=== PATIENT | female | born 1950 | race African-American/Black ===

== ENCOUNTER → 2017-08-28 10:13 | Outpatient (CLI) | payer MEDICARE, SELFPAY ==
--- NOTE | 2017-08-28 10:15 | EKG12_ITS ---
Test Reason : PRE-OP Blood Pressure : / mmHG Vent. Rate : 072 BPM Atrial Rate : 072 BPM P-R Int : 128 ms QRS Dur : 096 ms QT Int : 350 ms P-R-T Axes : 049 010 061 degrees QTc Int : 383 ms Normal sinus rhythm Nonspecific T wave abnormality Abnormal ECG Confirmed by ROSELIA ALFARO, ABRAM ([id number]), story editor MAGALIE RAHMAN ([id number]) on 08/29/2017 12:02:23 PM Referred By: Dwaine Mo Confirmed By:ABRAM VELOZ MD
== END ==
PROVIDERS: Family Provider Family Medicine Geriatric Medicine; PCP Family Medicine Geriatric Medicine; Visit Provider Family Medicine Geriatric Medicine
DX: Z01.810 Encounter for preprocedural cardiovascular examination (principal)
CPT/HCPCS: 93005

== ENCOUNTER 2017-09-04 09:19 | Inpatient (IN) | payer MEDICARE, SELFPAY ==
[2017-08-31 16:18] LABS: Hemoglobin A1c 8.6 % (4.2-6.3)
[2017-09-04] VITALS (14 sets, daily range): BP systolic 110–150; BP diastolic 56–94; PULSE 70–83; RESP 16–18; TEMP 35.8–37; O2SAT 92–100; BMI 46.4
--- NOTE | 2017-09-04 | KNEE_PTH ---
PATIENT: KONRAD LOCKWOOD LOC: MS3 U#:[id number] AGE/SX: 67/F ROOM: MS310 RE09/04/[address]: Alexi Mark DO : 1950 BED: 1 DIS: 09/06/2017 SPEC #: [id number] RECD: 09/04/17 14:40 STATUS: AARON REGianna #: [id number] JENNIFER: 09/04/17 00:[address]: Aleix Mark DEPT: SURGICAL PATHOLOGY RECD BY: Elmre Sow ENTERED: 09/04/17 14:40 SP TYPE: TOTAL KNEE OTHR DR: Dr. Dwaine Mo MD Tissues: Knee, NOS Procedures: Decalcification bone/plaque Surgery Specimen Level IV HEADER OPERATION: Total knee replacement PRE-OP DIAGNOSIS: Primary osteoarthritis and chronic pain of right knee TISSUE SUBMITTED: Bone and tissue from right knee MICROSCOPIC DIAGNOSIS Bone and tissue, right knee, total knee replacement: Pieces of bone with degenerative osteoarthritic changes. Fibroadipose tissue, fibroconnective tissue and reactive synovial tissue. SJ:rylan 09/07/17 MICROSCOPIC DESCRIPTION Slides are reviewed. GROSS DESCRIPTION Received is one container designated bone and soft tissue right knee. The specimen consists of multiple fragments of wilhelm-yellow bone measuring in aggregate 17 x 9 x 2 cm. Also in the specimen container are multiple fragments of yellow-white soft tissue measuring in aggregate 7 x 6.5 x 1.5 cm. A number of bony fragments contain articular surfaces consistent with tibial plateau and femoral condyle and displaying prominent osteophyte formation, eburnation, and bone erosion. Manager Resource sections are submitted in two cassettes as follows: 1 - bone after decalcification, 2 - soft tissue. / AM:rylan 09/04/17 TC:5 [facility]: [id number], [id number]
[2017-09-04] MEDS: oxyCODONE HCl Cr 10 MG Tablet PO ×2 (10:02→21:42)
[2017-09-04 10:21] LABS: Bedside Glucose 103 mg/dL (70-110)
[2017-09-04] MEDS: Cefazolin 2 GM in 0.9% Normal Saline 100 ML IV (11:50)
--- NOTE | 2017-09-04 13:17 | OP.PN_ITS ---
Immediate Post-Op Note Date of Procedure: 09/04/17 Primary Surgeon/Physician: Alexi Mark DO nonprofit director: Wolf Hoang Pre-Operative Diagnosis: Right knee osteoarthritis Post-Operative Diagnosis: Same as above Surgery/Procedure Performed:: Right total knee arthroplasty-[place] trimaren Description of Surgical Findings:: See dictation Estimated Blood Loss: 50 Specimen's removed: Bone cuts Type of Anesthesia:: General ASA Class: ASA2 Mod Systematic Disease - Admit VTE Documentation VTE Present on Admission: No VTE Mechan Device Prophylaxis: SCD's, Knee High JEREMY Hose VTE Pharm Prophylaxis ordered?: Yes
--- NOTE | 2017-09-04 13:17 | PCM.OPRPT ---
Report of Operation Date of Procedure: 09/04/17 Pre-Operative Diagnosis: Right knee osteoarthritis Post-Operative Diagnosis: Same as above Surgery/Procedure Performed:: Right total knee arthroplasty-[place] Description of Surgical Findings:: 67-year-old female with recalcitrant right knee pain that failed nonoperative management to include NSAIDs activity modifications physical therapy and injections. Plain from radiographs revealed osteoarthritis greatest across the medial compartment and the patellofemoral joint. Patient discussed possibility of having compartment arthroplasty versus total knee. Patient felt her age and she was more inclined to have a total knee arthroplasty at this point time. Patient was subsequently consented for the aforementioned procedure. She is met in the holding area where the right lower extremity was marked and identified by the with surgeon. Patient was taken to the operating room where a timeout took place 25 patient up procedure limb. Patient received preoperative Ancef and 1 g of TXA. She had a well-placed tourniquet right proximal thigh. She was then prepped and draped in usual fashion. Right lower extremity was elevated Esmarch used for exsanguination and tourniquet was increased to 250 mmHg for roughly 60 minutes. Patient had a standard midline incision made 2 fingerbreadths above the patella down to the tibial tubercle. She then underwent a standard medial parapatellar approach. Patient had a large return of an effusion. Grossly was seen the patient had osteoarthritis of patellofemoral joint and the medial compartment. Lateral compartment is relatively preserved. At that point time an anterior fat pad resection was undertaken. We then performed a standard anterior medial release secondary to the varus nature of the patient's knee. She was correctable to neutral deformity preoperatively. At that point time we placed our intramedullary canal using standard technique in order perform our distal femoral cut. We performed an 8 mm distal femoral section with a 6? valgus cut. This was done using standard technique. Sizing guide was then placed to establish also external rotation of our component. We used a trans-epicondylar axis. Patient sized to a size 3 femoral component. Size 3 cutting jig was then placed in standard cuts were performed. Then turned our attention to the tibia. We anticipated performing a CR component. Tibial slope was set accordingly. At that point time we took 2 mm off the medial side of the knee. This was done using standard technique. At that point time the soft tissue remnants of menisci removed in the posterior lateral and posterior medial geniculate vessels were cauterized. The PCL was protected. We then placed a 9 mm spacer. We had good mechanical alignment in the AP plane and no flexion or extension gap through 30 and 90? of knee flexion. At that point time trial components were placed external rotation the components was achieved and the tibia was then fixed. Keel punch introduced and we placed secondary punch in anticipation of a press-fit tibial component. Then turned our attention to the patella. It measured roughly 22 mm in overall thickness we took off 10. Patient sized with 35 patella button. Appropriate drill holes were placed in anticipation of a cemented patella component. We then copiously irrigated the joint to remove any excess debris. Components were brought to the back table tibial component seated initially femoral component then impacted without difficulty and 11 mm spacer was placed. We then turned our attention to the patella it was cemented accordingly and the cement was allowed to cure. I elected to move up to a 13 trial as I felt a little bit overall soft tissue balancing on the medial side with that component. Patient remained stable and I elected to proceed again with a 13 mm CS Erendira. We copiously irrigated the wound one additional time. The 13 mm CS Erendira was then impacted using standard technique. We had excellent overall mechanical alignment in extension. At that point time patient was injected with roughly 75 cc of the periarticular joint cocktail for pain control. We then began our closure using standard technique. The distal two thirds the wound was closed with ohinif-di-xccyg technique using #1 Vicryl with the knee in 30? of knee flexion.. The proximal one third was closed in full extension. It was let down during final closure. We then proceeded to close the soft tissues with 2-0 Vicryl running subicular Monocryl and Dermabond. Patient was then dressed with a compressive wrap to include Silverlon. No drains or complications. Implants included [place]au triathlon press-fit total knee-#3 femur, #3 tibia, 13 mm CS Erendira, 35 patella button. Omitted to the floor for 24 hours of IV antibiotics appropriate IV and p.o. pain medication. DVT prophylaxis to include SCDs teds early aggressive range of motion in 325 p.o. twice daily with GI prophylaxis of aspirin. Any major issues please contact me if I was scrubbed and available time during our procedure. bottling equipment sales representative: Wolf Hoang Type of Anesthesia:: General Specimen's removed: Bone cuts Estimated Blood Loss (mL): 50 Grafts/Implants Used: Striker triathlon press-fit-3 femur, 3 tibia, 13 mm CS Erendira, 35 patella - Complications None - Admit VTE Documentation VTE Present on Admission: No VTE Mechan Device Prophylaxis: SCD's, Knee High JEREMY Hose VTE Pharm Prophylaxis ordered?: Yes
--- NOTE | 2017-09-04 14:00 | RAD_ITS ---
STUDY: X-RAY - RIGHT KNEE REASON FOR EXAM: Female, 67 years old. Total knee replacement. TECHNIQUE: 2 view(s) of the knee. COMPARISON: Comparison is made with prior study dated December 18, 2016. FINDINGS: Normal visualized distal femur. Normal visualized proximal tibia and fibula. Normal proximal tibiofibular articulation. The patient is status post right total knee replacement. There is good alignment. Postoperative soft tissue changes. RAD/Knee 1 or 2 Views IMPRESSION: Total knee replacement. There is good alignment. Postoperative soft tissue changes. Electronically Signed: Deon Nair MD at 15:49 EST Tel [phone], Service support ,
[2017-09-04 14:26] LABS: Bedside Glucose 137 mg/dL (70-110)
--- NOTE | 2017-09-04 16:21 | CASEMGMT ---
Social Work Note Updated by Dr. Mark that the pt was requesting to go to TCU at discharge. Placed call to [facility] and left vm inquiring about bed availability. Will f/u in the morning to confirm determination. Plan: SNF pending acceptance and pre-cert. Suzy Berkowitz, HEAD REFRIGERATION ENGINEER, AUTO BODY REPAIRMAN
[2017-09-04] MEDS: Gabapentin 600 MG Tablet PO (16:52)
[2017-09-04] MEDS: Acetaminophen 500 MG Tablet 1000 MG PO ×2 (16:52→21:42)
[2017-09-04 16:56] LABS: Bedside Glucose 139 mg/dL (70-110)
[2017-09-04] MEDS: CLARIFY ORDER NOTE (20:21)
[2017-09-04] MEDS: Ondansetron 4 MG/2 ML Vial IV (20:37)
[2017-09-04] MEDS: Cefazolin 1 GM/50 ML BAG IV (20:38)
[2017-09-04] MEDS: Senna/Docusate Sodium 1 Tablet 2 TABLET PO (21:41)
[2017-09-04] MEDS: Atorvastatin Calcium 20 MG Tablet PO (21:42)
[2017-09-04] MEDS: Pantoprazole Sodium 40 MG Tablet PO (21:42)
[2017-09-05] VITALS (8 sets, daily range): BP systolic 118–135; BP diastolic 54–80; PULSE 69–78; RESP 16–18; TEMP 36.5–36.8; O2SAT 86–99
[2017-09-05] MEDS: Lactated Ringers 1,000 ML 75 ML IV (01:30)
[2017-09-05] MEDS: Cefazolin 1 GM/50 ML BAG IV (03:09)
[2017-09-05 05:48] LABS: Hematocrit 38.8 % (37-47); Hemoglobin 11.9 g/dl (12.0-15.0); Mean Corp Hgb Conc 30.7 g/gl (32-36); Mean Corpuscular Hgb 25.1 pg (27.0-32.0); Mean Corpuscular Volume 81.9 fL (81-99); Mean Platelet Vol. 10.1 fl (6.2-12.0); Platelet Count 279 K/mm3 (150-450); RBC Distribution Width CV 15.3 % (11.6-14.6); RBC Distribution Width SD 45.9 fl (35.1-43.9); Red Blood Count 4.74 M/mm3 (4.2-5.4)
[2017-09-05] MEDS: Acetaminophen 500 MG Tablet 1000 MG PO ×3 (05:56→22:19)
[2017-09-05 06:05] LABS: Anion Gap 6 (5-15); BUN 7 mg/dL (7-18); BUN/Creat Ratio 6.6 RATIO (10-20); Calcium,Total 8.4 mg/dL (8.5-10.1); Chloride 109 mmol/L (98-107); Creatinine, Serum 1.06 mg/dL (0.55-1.02); EST Glomerular Filtration Rate 55 mL/min (>60); Est Glom Filt Rate - Afr Amer 66 mL/min (>60); Estimated Creatinine Clearance 43.25 ml/min; Glucose 122 mg/dL (74-106); Potassium 4.4 mmol/L (3.5-5.1); Sodium Level 143 mmol/L (136-145)
[2017-09-05 06:16] LABS: Scan Indicated on CBC? Y/N NO
[2017-09-05 06:31] LABS: Bedside Glucose 130 mg/dL (70-110)
--- NOTE | 2017-09-05 07:53 | PN.ORTHO_ITS ---
Subjective: Postop day 1 status post right total knee arthroplasty. Patient is doing well. Patient is sitting upright eating breakfast at this time. Pain is controlled. Vital signs remained stable in hardware otherwise well seated well- placed. No chest pain fevers chills nausea or vomiting. - Physical Exam General: Alert, Oriented x3, Cooperative, No apparent distress Musculoskeletal: - - Distally neurovascular intact. No calf pain negative Homans. SCDs teds in place. EHL anterior gastric shoulders peroneals quads hamstrings 5 out of 5. X-rays reviewed hardware otherwise well stapled in position. Vital signs remained stable. H&H stable. Vital Signs Temp Pulse Resp BP Pulse Ox 97.9 F 69 18 135/80 H 98 09/05/17 03:07 09/05/17 03:07 09/05/17 03:07 09/05/17 03:07 09/05/17 03:07 Oxygen Flow Rate (L/min) 2 Oxygen Delivery Method Nasal Cannula Weight: 270 lb 8.115 oz Body Mass Index (BMI) 46.4 Finger Stick Blood Glucose 137 Intake and Output for Last 24 Hours 09/03/17 09/04/17 09/05/17 23:59 23:59 23:59 Intake Total 3245 / 3245 1708 / 1708 Output Total 600 / 600 900 / 900 Balance 2645 / 2645 808 / 808 Microbiology Past 72 Hours 08/31/17 15:23 Nasal Screen MRSA/MSSA ([facility]) - Final Swab (Method) Laboratory Tests Past 24 Hrs 09/05/17 09/05/17 05:28 05:28 WBC 13.0 H RBC 4.74 Hgb 11.9 L Hct 38.8 MCV 81.9 MCH 25.1 L MCHC 30.7 L RDW 15.3 H RDW Differential 45.9 H Plt Count 279 MPV 10.1 Sodium 143 Potassium 4.4 Chloride 109 H Carbon Dioxide 28.0 Anion Gap 6 BUN 7 Creatinine 1.06 H Estim Creat Clear Calc 43.25 Est GFR (MDRD) Af Amer 66 Est GFR (MDRD) Non-Af 55 L BUN/Creatinine Ratio 6.6 L Glucose 122 H Calcium 8.4 L POC Glucose 09/05/17 09/04/17 09/04/17 06:27 16:48 14:22 POC Glucose 130 H 139 H 137 H 09/04/17 09:47 POC Glucose 103 Assessment/Plan Assessment: Postop day 1 status post right total knee arthroplasty. Patient is doing well. Plan: At this point time and place a sliding scale for the patient's sugar. Consult is been placed to case management for placement into the transitional care unit. Continue with aggressive mobilization. Patient is weightbearing as tolerated. Continue with aggressive incentive incentive spirometry and pulmonary toileting. Any issues please contact me.
[2017-09-05] MEDS: Aspirin 325 MG Tablet PO ×2 (08:26→17:37)
[2017-09-05] MEDS: Senna/Docusate Sodium 1 Tablet 2 TABLET PO ×2 (08:27→22:19)
[2017-09-05] MEDS: Gabapentin 600 MG Tablet PO ×3 (08:27→17:37)
[2017-09-05] MEDS: Famotidine 20 MG Tablet PO (08:27)
[2017-09-05] MEDS: Ascorbic Acid 500 MG Tablet 1000 MG PO (08:27)
[2017-09-05] MEDS: Multivitamins,Therapeutic Tablet 1 TABLET PO (08:27)
[2017-09-05] MEDS: oxyCODONE HCl Cr 10 MG Tablet PO ×2 (08:29→22:19)
--- NOTE | 2017-09-05 09:22 | CASEMGMT ---
Social Work Note VM from [facility] confirming that they will have a bed for the pt. Pre-cert will need obtained and will be initiated once PT/OT notes are documented. Transfer to ECF forms placed on pt's chart for physician to complete. SW to continue to follow and assist with discharge planning. Plan: TCU pending pre-cert. Suzy Berkowitz, OSS ARCHITECT, HEALTHCARE ANALYST
--- NOTE | 2017-09-05 10:11 | CASEMGMT ---
Social Work Note Face to face with the pt to discuss discharge planning. Introduced self and role at [facility]. Informed that TCU has a bed and pt may transfer once pre-cert has been obtained. Discuss that SW anticipates receiving approval from insurance either , 09/06 or Sunday, 09/07. SW to continue to follow and assist with discharge planning. Plan: TCU pending pre-cert. Suzy Berkowitz, PROFESSIONAL DRIVER, DIRECTOR FUNDS DEVELOPMENT
[2017-09-05 11:01] LABS: Bedside Glucose 182 mg/dL (70-110)
[2017-09-05] MEDS: Ondansetron 4 MG/2 ML Vial IV (11:51)
[2017-09-05] MEDS: 0.9% NaCl Peripheral Flush Adult/Peds IV (11:52)
--- NOTE | 2017-09-05 13:13 | CHAPLAIN ---
Type of Pastoral Visit _x__ Initial Visit ___ Follow-up Visit ___ On-call Visit ___ General Patient Visit ___ Spiritual Assessment ___ Family Conference ___ Bereavement ___ Rapid Response ___ Code Blue ___ Other (describe below) Pastoral Care Referral From _x__ Patient ___ Family ___ Nurse ___ Physician ___ Bank Messenger ___ Wellness Nurse ___ Other (describe below) Sacrament/Intervention _x__ Active listening ___ Anointing ___ Restoration ___ Bereavement ___ Communion _x__ Marla exploration ___ ___ Life review _x__ Prayer ___ Reconciliation ___ Sacrament of Sick ___ Supportive presence ___ Wedding ___ Other (describe below) Pastoral Comments patient is an acquaintance and she gives updates on her life and medical condition; pt welcomes prayer; pt has no other concerns; pt is looking forward to staying in our TCU for her therapy
[2017-09-05 16:06] LABS: Bedside Glucose 199 mg/dL (70-110)
[2017-09-05] MEDS: Pantoprazole Sodium 40 MG Tablet PO (22:19)
[2017-09-05] MEDS: Atorvastatin Calcium 20 MG Tablet PO (22:20)
[2017-09-05 22:51] LABS: Bedside Glucose 184 mg/dL (70-110)
[2017-09-06 04:00] VITALS: BP 114/63; PULSE 75; RESP 18; TEMP 36.5; O2SAT 99
[2017-09-06] MEDS: oxyCODONE 5 MG Tablet PO ×2 (04:06→14:00)
[2017-09-06 04:15] VITALS: PULSE 75; RESP 18; O2SAT 99
[2017-09-06 06:07] LABS: Hematocrit 39.1 % (37-47); Hemoglobin 12.2 g/dl (12.0-15.0); Mean Corp Hgb Conc 31.2 g/gl (32-36); Mean Corpuscular Hgb 25.1 pg (27.0-32.0); Mean Corpuscular Volume 80.5 fL (81-99); Mean Platelet Vol. 10.1 fl (6.2-12.0); Platelet Count 260 K/mm3 (150-450); RBC Distribution Width CV 15.4 % (11.6-14.6); Red Blood Count 4.86 M/mm3 (4.2-5.4); White Blood Count 16.2 K/mm3 (4.4-11.0)
[2017-09-06 06:25] LABS: Scan Indicated on CBC? Y/N NO
[2017-09-06 06:36] LABS: Anion Gap 7 (5-15); BUN 12 mg/dL (7-18); BUN/Creat Ratio 9.9 RATIO (10-20); Chloride 112 mmol/L (98-107); Creatinine, Serum 1.21 mg/dL (0.55-1.02); EST Glomerular Filtration Rate 47 mL/min (>60); Est Glom Filt Rate - Afr Amer 57 mL/min (>60); Estimated Creatinine Clearance 37.89 ml/min; Glucose 149 mg/dL (74-106); Potassium 4.7 mmol/L (3.5-5.1); Sodium Level 142 mmol/L (136-145)
[2017-09-06] MEDS: Acetaminophen 500 MG Tablet 1000 MG PO ×2 (06:46→14:26)
[2017-09-06 06:56] LABS: Bedside Glucose 152 mg/dL (70-110)
--- NOTE | 2017-09-06 07:51 | PCM.PN.ORT ---
Subjective: Postop day 2 status post right total knee arthroplasty. Patient doing well at this time. Patient sitting upright in chair with knee bent to 90?. She is eating. Pain is controlled with p.o. pain medication. Patient denies any fevers chills nausea vomiting chest pain or shortness of breath. Currently waiting precertification for transfer to the transitional care unit for her rehabilitation. - Physical Exam General: Alert, Oriented x3, Cooperative, No apparent distress Musculoskeletal: - - Distally neurovascular intact. SCDs teds in place. Dressing in place. Range of motion 0-90. Lab values and vitals remained stable. Good motor strength. Patient is ambulatory around the room and slightly out the door. Vital Signs Temp Pulse Resp BP Pulse Ox 97.7 F L 75 18 114/63 99 09/06/17 04:00 09/06/17 04:15 09/06/17 04:15 09/06/17 04:00 09/06/17 04:15 Oxygen Flow Rate (L/min) 2 Oxygen Delivery Method Nasal Cannula Weight: 270 lb 8.115 oz Body Mass Index (BMI) 46.4 Finger Stick Blood Glucose 137 Intake and Output for Last 24 Hours 09/04/17 09/05/17 09/06/17 23:59 23:59 23:59 Intake Total 3245 / 3245 2408 / 2408 350 / 350 Output Total 600 / 600 900 / 900 800 / 800 Balance 2645 / 2645 1508 / 1508 -450 / -450 Laboratory Tests Past 24 Hrs 09/06/17 09/06/17 05:54 05:54 WBC 16.2 H RBC 4.86 Hgb 12.2 Hct 39.1 MCV 80.5 L MCH 25.1 L MCHC 31.2 L RDW 15.4 H RDW Differential 45.0 H Plt Count 260 MPV 10.1 Sodium 142 Potassium 4.7 Chloride 112 H Carbon Dioxide 23.0 Anion Gap 7 BUN 12 Creatinine 1.21 H Estim Creat Clear Calc 37.89 Est GFR (MDRD) Af Amer 57 L Est GFR (MDRD) Non-Af 47 L BUN/Creatinine Ratio 9.9 L Glucose 149 H Calcium 8.0 L POC Glucose 09/06/17 09/05/17 09/05/17 06:50 22:26 16:02 POC Glucose 152 H 184 H 199 H 09/05/17 10:55 POC Glucose 182 H Assessment/Plan Assessment: Postop day 2 status post right total knee arthroplasty doing well. Plan: At this point time are awaiting transfer to the transitional care unit. I will complete the necessary forms in order to trend transfer there if she gets approved for today versus tomorrow. I will be in the hospital later this afternoon. There is any issues please contact me. I think the patient is doing very well.
[2017-09-06] MEDS: Gabapentin 600 MG Tablet PO ×2 (08:19→11:38)
[2017-09-06] MEDS: oxyCODONE HCl Cr 10 MG Tablet PO (08:19)
[2017-09-06] MEDS: Senna/Docusate Sodium 1 Tablet 2 TABLET PO (08:19)
[2017-09-06] MEDS: Famotidine 20 MG Tablet PO (08:20)
[2017-09-06] MEDS: Ascorbic Acid 500 MG Tablet 1000 MG PO (08:20)
[2017-09-06] MEDS: Aspirin 325 MG Tablet PO (08:20)
[2017-09-06] MEDS: Multivitamins,Therapeutic Tablet 1 TABLET PO (08:20)
[2017-09-06] MEDS: INSULIN DEGLUDEC 200 UNIT/ML INSULN.PEN SQ (08:30)
[2017-09-06 08:31] VITALS: BP 102/55; PULSE 79; RESP 20; TEMP 36.7; O2SAT 94
[2017-09-06 08:36] LABS: Bedside Glucose 242 mg/dL (70-110)
[2017-09-06 08:55] VITALS: O2SAT 96
[2017-09-06 11:46] LABS: Bedside Glucose 177 mg/dL (70-110)
--- NOTE | 2017-09-06 12:03 | PCM.DC.TKR ---
Discharge Activity: Return to Normal Activity May shower in (days): 1 May resume sexual activity in: 6 weeks Ice area for (Minutes): 20 Weight Bearing Status: Weight bearing as tolerated Call your doctor if your incision/area has: Continuous Slow Oozing, Sudden Increased Bleeding, Increased Pain/ Swelling, Increased Redness, Foul Smelling Discharge, Swelling at the incision site Call your doctor if you observe: Fever of 101 or Higher, Coldness, Increased Pain, Numbness or Tingling, Change in Color, Inability to urinate, Inability to have a bowel movement, Using more than one pad per hour, Shortness of breath, Dizziness, Fainting spells, Swelling in the ankles, Chest pain, Prolonged hiccoughing, Increased palpitations (irregular heartbeat), Calf discomfort, Uncontrolled pain Suture Line Care: Avoid Pulling/Pushing, Avoid Pinching/Bending Change Dressing in (Days):: 5 Remove Dressing in (days):: 5 Cleanse incision/area with: Soap & Water Additional Dressing/Incision Instructions:: Dressing stays on for a total of 7 days from date of operation. If the patient starts to show blister formation around the adhesive edges then please remove dressing early. The wounds can be dressed with bacitracin and Neosporin or equivalent. Allergies/Adverse Reactions: Allergies celecoxib [From Celebrex] Allergy (Verified 08/29/17 11:14) unknown lisinopril Allergy (Verified 08/29/17 11:14) unknown Medications to take at Discharge Albuterol IH (ProAir) [Proair Hfa] 1 - 2 puff INHALATION Q6H PRN PRN 08/29/17 Canagliflozin/Metformin HCl [Invokamet 50-1,000 mg Tablet] 1 each PO QHS 08/29/17 Dexlansoprazole [Dexilant] 60 mg PO QHS 08/29/17 Gabapentin [Neurontin] 600 mg PO TIDCM 08/29/17 Insulin Degludec [Tresiba Flextouch U-200] 60 - 90 unit SQ DAILY 08/29/17 Lubiprostone [Amitiza] 24 mcg PO BID PRN 08/29/17 Nebivolol HCl [Bystolic (Beta Selena)] 5 mg PO QHS 08/29/17 Rosuvastatin Calcium [Crestor] 10 mg PO QHS 08/29/17 Aspirin E.C. [Ecotrin] 325 mg PO BID #30 tab 09/06/17 Docusate Sodium [Colace] 100 mg PO BID PRN PRN #10 cap 09/06/17 Famotidine [Pepcid] 20 mg PO BID #30 tab 09/06/17 Oxycodone HCl/Acetaminophen [Percocet 5/325] 1 - 2 tab PO Q4H PRN PRN #60 tab 09/06/17 ProMETHAzine [Phenergan] 25 mg PO Q4H PRN PRN #10 tab 09/06/17 The following prescriptions were given: Oxycodone HCl/Acetaminophen [Percocet 5/325] 1 - 2 tab PO Q4H PRN PRN #60 tab PRN Reason: Pain ProMETHAzine [Phenergan] 25 mg PO Q4H PRN PRN #10 tab PRN Reason: Nausea Docusate Sodium [Colace] 100 mg PO BID PRN PRN #10 cap PRN Reason: Constipation Aspirin E.C. [Ecotrin] 325 mg PO BID #30 tab Famotidine [Pepcid] 20 mg PO BID #30 tab Primary Care Physician: Dwaine Mo Chi, MD [Primary Care Provider] - Please Follow Up With: Alexi Mark DO When: CALL [facility] FOR APPT FOR 2 WEEKS Proposed Discharge Date: 09/06/17
--- NOTE | 2017-09-06 13:10 | CASEMGMT ---
Social Work Note Call from [facility] stating that pre-cert has been obtained. Inform that the physician has placed discharge order and [facility] anticipates discharge this date. Placed call to air export operations agent, Orquidea Pierce, on unit to notify. Plan: TCU for rehabilitation. Suzy Berkowitz, SUPERINTENDENT BOARD MILL, FISHER LOBSTER
[2017-09-06 14:23] VITALS: BP 123/65; PULSE 90; RESP 16; TEMP 36.6; O2SAT 94
--- NOTE | 2017-09-06 15:15 | NURSING ---
Call placed to TCU report given to parminder
--- NOTE | 2017-09-08 08:25 | PCM.DC.BLA ---
Discharge Summary Date of Admission: 09/04/17 Date of Discharge: 09/06/17 Summary: 67-year-old female status post right total knee arthroplasty. Patient was admitted to the floor for 24 hours IV antibiotics appropriate IV and p.o. pain medication. DVT prophylaxis to include SCDs and teds and 325 p.o. twice daily of aspirin with appropriate GI prophylaxis. Patient tolerated regular diet. She was amatory physical therapy. She had no fevers chills nausea vomiting chest pain or shortness of breath. Developed no calf pain. Patient was evaluated by physical therapy and case management felt to be appropriate for transfer to the incisional care unit for nursing home facility rehab. Assessment: [facility] status post right total knee arthroplasty doing well. Plan: At this point time patient be transferred to the transitional care unit for nursing home facility rehab. I will follow the patient on the floor as long as she is there. Continue with aspirin for 14 days total from date of operation. Patient's dressing stays on for a total total of 7 days from date of operation unless she were to develop blister formation from traction to the adhesive. If so dressing can be removed early. There is issues in terms of blister formation that can be dressed with any form of antibiotic solution such as triple ointment bacitracin or Neosporin. Any issues please contact me.
== END 2017-09-06 16:46 | disposition skilled nursing facility (03) | DRG 470 ==
PROVIDERS: Admitting Provider Orthopaedic Surgery; Family Provider Family Medicine Geriatric Medicine; PCP Family Medicine Geriatric Medicine; Visit Provider Orthopaedic Surgery
PROC: 0SRC0J9 Replacement of Right Knee Joint with Synthetic Substitute, Cemented, Open Approach (ICD-10-PCS; CPT 27447; principal; 2017-09-04 11:00)
DX: M17.11 Unilateral primary osteoarthritis, right knee (principal); E11.9 Type 2 diabetes mellitus without complications; J45.909 Unspecified asthma, uncomplicated; I10 Essential (primary) hypertension; Z79.4 Long term (current) use of insulin
CPT/HCPCS: 36415; 73560; 80048; 82962; 83036; 85027; 87081; 88305; 88311; 97110; 97116; 97162; 97166; 97530; 97535; J3010; J7120; A4216; J2405

== ENCOUNTER 2017-09-06 16:53 | Inpatient (IN) | payer MEDICARE, SELFPAY ==
[2017-09-06 17:16] LABS: Bedside Glucose 173 mg/dL (70-110)
[2017-09-06 17:45] VITALS: BP 131/72; PULSE 97; RESP 20; TEMP 36.6; O2SAT 90; BMI 48.2
[2017-09-06] MEDS: Famotidine 20 MG Tablet PO (19:00)
[2017-09-06] MEDS: Gabapentin 600 MG Tablet PO (19:00)
[2017-09-06 20:00] VITALS: BP 130/64; PULSE 89; RESP 15; TEMP 36.6; O2SAT 80
[2017-09-06 20:05] VITALS: PULSE 77; RESP 15; O2SAT 80; BMI 48.2
--- NOTE | 2017-09-06 20:43 | PCM.HP.STD ---
Problem List (1) Osteoarthritis of right knee Status: Chronic (2) Diabetes mellitus Status: Chronic (3) Hypertension Status: Chronic (4) Hyperlipidemia Status: Chronic (5) Polyneuropathy Status: Chronic (6) GERD (gastroesophageal reflux disease) Status: Chronic (7) Constipation Status: Chronic History of Present Illness Date of Admission: 09/06/17 Chief Complaint: Here for rehabilitation, strengthening, prior to discharge home alone. The patient is a 67 year old Female with below past medical history hospitalized for right total knee replacement 09/04/[address] Alexi Mark, admitted to TCU for rehabilitation, strengthening, prior to discharge home alone. Past Medical History Past Medical History (Chronic Problems): Chronic Problems (Last Updated 08/13/17 @ 13:21 by Tory Lugo) Osteoarthritis of right knee (Chronic) Diabetes mellitus (Chronic) Hypertension (Chronic) Hyperlipidemia (Chronic) Polyneuropathy (Chronic) GERD (gastroesophageal reflux disease) (Chronic) Constipation (Chronic) Allergies celecoxib [From Celebrex] Allergy (Verified 08/29/17 11:14) unknown lisinopril Allergy (Verified 08/29/17 11:14) unknown Home Medications: Ambulatory Orders Medication Instructions Recorded Albuterol IH (ProAir) [Proair Hfa] 1 - 2 puff INHALATION Q6H PRN PRN 08/29/17 Canagliflozin/Metformin HCl 1 each PO QHS 08/29/17 [Invokamet 50-1,000 mg Tablet] Dexlansoprazole [Dexilant] 60 mg PO QHS 08/29/17 Gabapentin [Neurontin] 600 mg PO TIDCM 08/29/17 Insulin Degludec [Tresiba 60 - 90 unit SQ DAILY 08/29/17 Flextouch U-200] Lubiprostone [Amitiza] 24 mcg PO BID PRN 08/29/17 Nebivolol HCl [Bystolic (Beta 5 mg PO QHS 08/29/17 Selena)] Rosuvastatin Calcium [Crestor] 10 mg PO QHS 08/29/17 Aspirin E.C. 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: No pertinent HARDWOOD FLOORING SPECIALIST history Lives: Alone Smoking Status: Never smoker Tobacco Use: Non-smoker Alcohol: None Drugs: None - *Family History Maternal History Items: No pertinent history Paternal History Items: No pertinent history Review of Systems Constitutional: Denies: Chills, Fever, Weight Change HEENT: Denies: Head Aches, Sinus Congestion, Sinus Drainage Cardiovascular: Denies: Chest Pain, Palpitations Respiratory: Denies: Cough, Shortness of breath at rest, Sputum production Gastrointestinal: Denies: Abdominal Pain, Nausea, Vomiting Genitourinary: Denies: Dysuria Musculoskeletal: Denies: Joint Pain, Joint Tenderness Skin: Denies: Rash, Wounds Neurological: Denies: Numbness, Tingling, Focal weakness Psychiatric: Denies: Anxiety, Depression, Homicidal Ideations, Suicidal Ideations Hematologic/ Lymphatic: Denies: Easy Bruising, Easy Bleeding VTE Information - Inpt Only VTE Present on Admission: No VTE Mechan Device Prophylaxis: Knee High JEREMY Hose VTE Pharm Prophylaxis ordered?: Yes - Physical Exam General: Alert, Oriented x3, Cooperative HEENT: Atraumatic, PERRLA, EOMI, Normocephalic Neck: Supple, No JVD, Negative Carotid Bruits Lungs: Clear to auscultation, Normal air movement Cardiovascular: Regular rate, No murmurs Abdomen: Bowel Sounds Present, Soft, Non Tender Extremities: No edema, Capillary Refill Less than 3 Seconds Skin: No rashes, No breakdown, Incision - Right knee clean, dry, intact. Musculoskeletal: No Tenderness to Palpation of Joints or Extremities Neurological: Cranial nerves II-XII grossly intact Psych/Mental Status: Normal Affect, Appropriate Vital Signs Temp Pulse Resp BP Pulse Ox 97.8 F 89 15 130/64 H 80 09/06/17 20:00 09/06/17 20:00 09/06/17 20:00 09/06/17 20:00 09/06/17 20:00 Oxygen Flow Rate (L/min) 2 Oxygen Delivery Method Room Air Weight: 127.3 kg Body Mass Index (BMI) 48.2 Finger Stick Blood Glucose 137 POC Glucose 09/06/17 17:12 POC Glucose 173 H Assessment/Plan 67 year old female with below past medical history hospitalized for right total knee replacement 09/04/[address] Alexi Mark, admitted to TCU for rehabilitation, strengthening, prior to discharge home alone. Debility - PT/OT. Pain - Tylenol 1000MG Q8H, Oxycodone 10MG Q4H PRN severe pain. Bowel - Miralax 17GM daily, Senna/colace 2 tablets BID, Dulcolax 10MG [place] daily PRN, Magnesium citrate 300ML PO x 1 bottle for cleanout. Pneumonia vaccination - Administer Prevnar 13 and/or Pneumovax 23 as necessary. DVT prophylaxis - Aspirin 325MG BID. Shortness of breath - Proair 1-2 puffs Q6H PRN. Hyperlipidemia - Atorvastatin 40MG QHS. Diabetes Mellitus II - Invokamet 150/1000MG QHS. GERD - Famotidine 20MG BID. Neuropathic pain - Gabapentin 600MG TID. Hypertension - Bystolic 5MG QHS. Nausea - Phenergan 25MG Q4H PRN.
[2017-09-06] MEDS: Magnesium Citrate 300 ML PO (20:52)
--- NOTE | 2017-09-06 20:52 | HP.PCM_ITS ---
Problem List (1) Osteoarthritis of right knee Status: Chronic (2) Diabetes mellitus Status: Chronic (3) Hypertension Status: Chronic (4) Hyperlipidemia Status: Chronic (5) Polyneuropathy Status: Chronic (6) GERD (gastroesophageal reflux disease) Status: Chronic (7) Constipation Status: Chronic History of Present Illness Date of Admission: 09/06/17 Chief Complaint: Here for rehabilitation, strengthening, prior to discharge home alone. The patient is a 67 year old Female with below past medical history hospitalized for right total knee replacement 09/04/[address] Alexi Mark, admitted to TCU for rehabilitation, strengthening, prior to discharge home alone. Past Medical History Past Medical History (Chronic Problems): Chronic Problems (Last Updated 08/13/17 @ 13:21 by Tory Lugo) Osteoarthritis of right knee (Chronic) Diabetes mellitus (Chronic) Hypertension (Chronic) Hyperlipidemia (Chronic) Polyneuropathy (Chronic) GERD (gastroesophageal reflux disease) (Chronic) Constipation (Chronic) Allergies celecoxib [From Celebrex] Allergy (Verified 08/29/17 11:14) unknown lisinopril Allergy (Verified 08/29/17 11:14) unknown Home Medications: Ambulatory Orders Medication Instructions Recorded Albuterol IH (ProAir) [Proair Hfa] 1 - 2 puff INHALATION Q6H PRN PRN 08/29/17 Canagliflozin/Metformin HCl 1 each PO QHS 08/29/17 [Invokamet 50-1,000 mg Tablet] Dexlansoprazole [Dexilant] 60 mg PO QHS 08/29/17 Gabapentin [Neurontin] 600 mg PO TIDCM 08/29/17 Insulin Degludec [Tresiba 60 - 90 unit SQ DAILY 08/29/17 Flextouch U-200] Lubiprostone [Amitiza] 24 mcg PO BID PRN 08/29/17 Nebivolol HCl [Bystolic (Beta 5 mg PO QHS 08/29/17 Selena)] Rosuvastatin Calcium [Crestor] 10 mg PO QHS 08/29/17 Aspirin E.C. 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 Lives: Alone Smoking Status: Never smoker Tobacco Use: Non-smoker Alcohol: None Drugs: None - *Family History Maternal History Items: No pertinent history Paternal History Items: No pertinent history Review of Systems Constitutional: Denies: Chills, Fever, Weight Change HEENT: Denies: Head Aches, Sinus Congestion, Sinus Drainage Cardiovascular: Denies: Chest Pain, Palpitations Respiratory: Denies: Cough, Shortness of breath at rest, Sputum production Gastrointestinal: Denies: Abdominal Pain, Nausea, Vomiting Genitourinary: Denies: Dysuria Musculoskeletal: Denies: Joint Pain, Joint Tenderness Skin: Denies: Rash, Wounds Neurological: Denies: Numbness, Tingling, Focal weakness Psychiatric: Denies: Anxiety, Depression, Homicidal Ideations, Suicidal Ideations Hematologic/ Lymphatic: Denies: Easy Bruising, Easy Bleeding VTE Information - Inpt Only VTE Present on Admission: No VTE Mechan Device Prophylaxis: Knee High JEREMY Hose VTE Pharm Prophylaxis ordered?: Yes - Physical Exam General: Alert, Oriented x3, Cooperative HEENT: Atraumatic, PERRLA, EOMI, Normocephalic Neck: Supple, No JVD, Negative Carotid Bruits Lungs: Clear to auscultation, Normal air movement Cardiovascular: Regular rate, No murmurs Abdomen: Bowel Sounds Present, Soft, Non Tender Extremities: No edema, Capillary Refill Less than 3 Seconds Skin: No rashes, No breakdown, Incision - Right knee clean, dry, intact. Musculoskeletal: No Tenderness to Palpation of Joints or Extremities Neurological: Cranial nerves II-XII grossly intact Psych/Mental Status: Normal Affect, Appropriate Vital Signs Temp Pulse Resp BP Pulse Ox 97.8 F 89 15 130/64 H 80 09/06/17 20:00 09/06/17 20:00 09/06/17 20:00 09/06/17 20:00 09/06/17 20:00 Oxygen Flow Rate (L/min) 2 Oxygen Delivery Method Room Air Weight: 127.3 kg Body Mass Index (BMI) 48.2 Finger Stick Blood Glucose 137 POC Glucose 09/06/17 17:12 POC Glucose 173 H Assessment/Plan 67 year old female with below past medical history hospitalized for right total knee replacement 09/04/[address] Alexi Mark, admitted to TCU for rehabilitation, strengthening, prior to discharge home alone. * Debility - PT/OT. * Pain - Tylenol 1000MG Q8H, Oxycodone 10MG Q4H PRN severe pain. * Bowel - Miralax 17GM daily, Senna/colace 2 tablets BID, Dulcolax 10MG KS daily PRN, Magnesium citrate 300ML PO x 1 bottle for cleanout. * Pneumonia vaccination - Administer Prevnar 13 and/or Pneumovax 23 as necessary. * DVT prophylaxis - Aspirin 325MG BID. * Shortness of breath - Proair 1-2 puffs Q6H PRN. * Hyperlipidemia - Atorvastatin 40MG QHS. * Diabetes Mellitus II - Invokamet 150/1000MG QHS. * GERD - Famotidine 20MG BID. * Neuropathic pain - Gabapentin 600MG TID. * Hypertension - Bystolic 5MG QHS. * Nausea - Phenergan 25MG Q4H PRN.
[2017-09-06] MEDS: Atorvastatin Calcium 20 MG Tablet PO (21:00)
[2017-09-06 21:16] LABS: Bedside Glucose 142 mg/dL (70-110)
[2017-09-06] MEDS: Acetaminophen 500 MG Tablet 1000 MG PO (21:58)
[2017-09-06] MEDS: Atorvastatin Calcium 40 MG Tablet PO (21:59)
[2017-09-06] MEDS: oxyCODONE 5 MG Tablet PO (22:57)
[2017-09-06 23:00] VITALS: O2SAT 95
[2017-09-07] MEDS: Gabapentin 600 MG Tablet PO ×3 (04:18→18:11)
[2017-09-07] MEDS: Acetaminophen 500 MG Tablet 1000 MG PO ×3 (04:18→22:07)
[2017-09-07] MEDS: Senna/Docusate Sodium 1 Tablet 2 TABLET PO ×2 (04:19→18:18)
[2017-09-07] MEDS: Famotidine 20 MG Tablet PO ×2 (04:19→18:11)
[2017-09-07] MEDS: Polyethylene Glycol 3350 17 GM PACKET PO (04:20)
[2017-09-07] MEDS: oxyCODONE 5 MG Tablet PO ×2 (04:32→13:54)
[2017-09-07 06:12] LABS: Absolute Lymphocyte Count 2.14 X10^3/ul (0.83-4.51); Absolute Neutrophil Count 10.3 X10^3/uL (2.0-7.7); Basophil# 0.03 X10^3/uL; Basophil% 0.2 % (0-1); Eosinophil# 0.04 X10^3/uL; Eosinophils% 0.3 % (0-5); Hematocrit 37.4 % (37-47); Hemoglobin 11.5 g/dl (12.0-15.0); Lymphocyte # 2.14 X10^3/ul (4.0); Mean Corp Hgb Conc 30.7 g/gl (32-36); Mean Corpuscular Hgb 24.9 pg (27.0-32.0); Mean Corpuscular Volume 81.1 fL (81-99); Mean Platelet Vol. 10.5 fl (6.2-12.0); Monocyte# 1.64 X10^3/uL; Monocyte% 11.5 % (0-10); Neutrophil # 10.33 X10^3/uL (2.7-7.7); Neutrophil % 72.6 % (47-70); Platelet Count 256 K/mm3 (150-450); RBC Distribution Width CV 15.5 % (11.6-14.6); RBC Distribution Width SD 45.4 fl (35.1-43.9); Red Blood Count 4.61 M/mm3 (4.2-5.4); White Blood Count 14.2 K/mm3 (4.4-11.0)
[2017-09-07 06:16] LABS: Anion Gap 6 (5-15); BUN 17 mg/dL (7-18); Calcium,Total 8.8 mg/dL (8.5-10.1); Chloride 107 mmol/L (98-107); Creatinine, Serum 1.31 mg/dL (0.55-1.02); EST Glomerular Filtration Rate 43 mL/min (>60); Est Glom Filt Rate - Afr Amer 52 mL/min (>60); Glucose 109 mg/dL (74-106); Potassium 4.5 mmol/L (3.5-5.1); Sodium Level 145 mmol/L (136-145)
[2017-09-07 06:27] LABS: Differential Indicated SCAN CRITERIA MET; POSITIVE COUNT NO; POSITIVE DIFFERENTIAL YES; POSITIVE MORPHOLOGY NO
[2017-09-07 06:38] LABS: Differential Comment SCANNED
[2017-09-07 06:56] LABS: Bedside Glucose 113 mg/dL (70-110)
[2017-09-07] MEDS: Aspirin E.C. 325 MG Tablet PO ×2 (09:00→18:10)
--- NOTE | 2017-09-07 09:15 | NURSING ---
PT REPORTED OF SEEING BUGS IN BATHROOM. REASSURED PT THERE WAS NO BUGS ON THE FLOOR. REPORTED TO CRISTINO MILLS
[2017-09-07 09:27] VITALS: BP 105/62; PULSE 88; RESP 18; TEMP 36.4; O2SAT 98
--- NOTE | 2017-09-07 09:28 | NURSING ---
Addendum entered by Suzy Lam 09/07/17 14:50: Dr. Mo aware, N.O. for UA, CXR, KUB and d/c Oxyir, pt updated on all new orders, cont to monitor. Original Note: ASKED PT IF SHE HAS SEEN ANY THING ELSE. PT STATED SHE SEES SHADOWS AND BLACK SPOTS SOME TIMES AND HAS HAD IT BEFORE SURGERY BUT STATED ITS WORSE NOW. REPORTED TO CRISTINO MILLS
[2017-09-07 10:00] VITALS: PULSE 89; RESP 18; O2SAT 94
--- NOTE | 2017-09-07 10:57 | NURSING ---
PT YELLING OUT FOE HER DAD AND SOMEONE NAMED CARLOS WHILE RESTING IN RECLINER WITH EYES CLOSED. GOT CRISTINO ZEE TO HEAR. CRISTINO ZEE AWARE.
[2017-09-07] MEDS: Tuberculin,Purif.prot.deriv. 50 TU/ML Vial 5 ML ID (10:59)
--- NOTE | 2017-09-07 11:57 | PCM.PN.RX ---
<Filiberto Hernandez D - Last Filed: 09/07/17 11:57> Progress Note - Pharmacy Subjective: [] Objective: Allergies celecoxib [From Celebrex] Allergy (Verified 08/29/17 11:14) unknown lisinopril Allergy (Verified 08/29/17 11:14) unknown Home Medications Medication Instructions Recorded Albuterol IH (ProAir) [Proair Hfa] 1 - 2 puff INHALATION Q6H PRN PRN 08/29/17 Canagliflozin/Metformin HCl 1 each PO QHS 08/29/17 [Invokamet 50-1,000 mg Tablet] Dexlansoprazole [Dexilant] 60 mg PO QHS 08/29/17 Gabapentin [Neurontin] 600 mg PO TIDCM 08/29/17 Insulin Degludec [Tresiba 60 - 90 unit SQ DAILY 08/29/17 Flextouch U-200] Lubiprostone [Amitiza] 24 mcg PO BID PRN 08/29/17 Nebivolol HCl [Bystolic (Beta 5 mg PO QHS 08/29/17 Selena)] Rosuvastatin Calcium [Crestor] 10 mg PO QHS 08/29/17 Aspirin E.C. [Ecotrin] 325 mg PO BID #30 tab 09/06/17 Docusate Sodium [Colace] 100 mg PO BID PRN PRN #10 cap 09/06/17 Famotidine [Pepcid] 20 mg PO BID #30 tab 09/06/17 Oxycodone HCl/Acetaminophen 1 - 2 tab PO Q4H PRN PRN #60 tab 09/06/17 [Percocet 5/325] ProMETHAzine [Phenergan] 25 mg PO Q4H PRN PRN #10 tab 09/06/17 Current Medications Generic Name Dose Route Start Last Admin Trade Name Freq PRN Reason Stop Dose Admin Acetaminophen 1,000 mg 09/06/17 22:00 09/07/17 04:18 Tylenol PO 1,000 mg Q8 JENNIFER Administration Albuterol Sulfate 1 - 2 puff 09/06/17 19:20 Proair Hfa (Sp) Surgery/Vent Pts INHALATION Q6H PRN PRN SOB &/OR WHEEZING Aspirin 325 mg 09/07/17 08:00 09/07/17 09:00 Ecotrin PO 325 mg BIDCM JENNIFER Administration Atorvastatin Calcium 40 mg 09/06/17 22:00 09/06/17 21:59 Lipitor PO 40 mg QHS JENNIFER Administration Bisacodyl 10 mg 09/06/17 20:54 Dulcolax RECTAL DAILY PRN Constipation Famotidine 20 mg 09/06/17 18:00 09/07/17 04:19 Pepcid PO 20 mg BID JENNIFER Administration Gabapentin 600 mg 09/06/17 17:45 09/07/17 11:53 Neurontin PO 600 mg TIDCM JENNIFER Administration Nebivolol 5 mg 09/06/17 22:00 09/06/17 21:00 Bystolic PO 5 mg QHS JENNIFER Administration Oxycodone HCl 5 mg 09/06/17 20:55 09/07/17 04:32 Oxyir PO 5 mg Q4H PRN PRN Administration SEVERE PAIN (6-1010) Polyethylene Glycol 17 gm 09/07/17 06:00 09/07/17 04:20 Miralax PO 17 gm DAILY JENNIFER Administration Promethazine HCl 25 mg 09/06/17 17:19 09/07/17 05:24 Phenergan PO 25 mg Q4H PRN PRN Administration NAUSEA Senna/Docusate Sodium 2 tablet 09/07/17 06:00 09/07/17 04:19 Senokot-S, Yessy-Colace PO 2 tablet BID JENNIFER Administration Tuberculin PPD 5 tu 09/14/17 10:00 Tubersol, Aplisol, Ppd ID 09/14/17 10:01 X1 ONE Problem List (Last Updated 08/13/17 @ 13:21 by Tory Lugo) Osteoarthritis of right knee (Chronic) Diabetes mellitus (Chronic) Hypertension (Chronic) Hyperlipidemia (Chronic) Polyneuropathy (Chronic) GERD (gastroesophageal reflux disease) (Chronic) Constipation (Chronic) Vital Signs Temp Pulse Resp BP Pulse Ox 97.6 F L 88 18 105/62 98 09/07/17 09:27 09/07/17 09:27 09/07/17 09:27 09/07/17 09:27 09/07/17 09:27 Oxygen Flow Rate (L/min) 1 Oxygen Delivery Method Nasal Cannula Weight: 122.47 kg Body Mass Index (BMI) 48.2 Finger Stick Blood Glucose 137 Sodium 145 mmol/L (136-145) 09/07/17 05:15 Potassium 4.5 mmol/L (3.5-5.1) 09/07/17 05:15 Chloride 107 mmol/L (98-107) 09/07/17 05:15 Carbon Dioxide 32.0 mmol/L (21.0-32.0) 09/07/17 05:15 Anion Gap 6 (5-15) 09/07/17 05:15 BUN 17 mg/dL (7-18) 09/07/17 05:15 Creatinine 1.31 mg/dL (0.55-1.02) H 09/07/17 05:15 Est GFR (MDRD) Af Amer 52 mL/min (>60) L 09/07/17 05:15 Est GFR (MDRD) Non-Af 43 mL/min (>60) L 09/07/17 05:15 BUN/Creatinine Ratio 13.0 RATIO (10-20) 09/07/17 05:15 Glucose 109 mg/dL (74-106) H 09/07/17 05:15 Assessment/Plan: 1) Pain APAP scheduled, oxycodone for severe pain, gabapentin. Continue to monitor daily pain scores. 2) HTN Nebivolol at HS. BP/HR within goal ranges. Continue to monitor BP/HR. 3) HLD. Atorvastatin at HS. Lipids within goal range, hepatic enzymes wnl. Continue to monitor lipids, enzymes. 4) Pulm Albuterol as needed. Continue to monitor prn medication use, for s/s exacerbation. 5) DM2 Canagliflozin/metformin twice daily. Avg BGT < 180 mg/dL. Continue to monitor BGT, s/s hyper/hypoglycemia. 6) GI Famotidine twice daily, prn promethazine. Continue to monitor prn medication use, s/s GI distress. 7) DVT PPx ASA twice daily. Continue to monitor s/s bleeding/clot. Psychotropic Medications: None Unnecessary Medications: None Bowel Regimen: 8) Senna/s, PEG, prn bisacodyl. Continue to monitor prn medication use, for constipation/diarrhea. Date of Note:: 09/07/17 - Provider Comments Provider responsibility: Provider responsible to enter orders to implement recommendations <Dwaine Mo Chi - Last Filed: 09/07/17 14:16> Progress Note - Pharmacy Subjective: [] Objective: Allergies celecoxib [From Celebrex] Allergy (Verified 08/29/17 11:14) unknown lisinopril Allergy (Verified 08/29/17 11:14) unknown Home Medications Medication Instructions Recorded Albuterol IH (ProAir) [Proair Hfa] 1 - 2 puff INHALATION Q6H PRN PRN 08/29/17 Canagliflozin/Metformin HCl 1 each PO QHS 08/29/17 [Invokamet 50-1,000 mg Tablet] Dexlansoprazole [Dexilant] 60 mg PO QHS 08/29/17 Gabapentin [Neurontin] 600 mg PO TIDCM 08/29/17 Insulin Degludec [Tresiba 60 - 90 unit SQ DAILY 08/29/17 Flextouch U-200] Lubiprostone [Amitiza] 24 mcg PO BID PRN 08/29/17 Nebivolol HCl [Bystolic (Beta 5 mg PO QHS 08/29/17 Selena)] Rosuvastatin Calcium [Crestor] 10 mg PO QHS 08/29/17 Aspirin E.C. [Ecotrin] 325 mg PO BID #30 tab 09/06/17 Docusate Sodium [Colace] 100 mg PO BID PRN PRN #10 cap 09/06/17 Famotidine [Pepcid] 20 mg PO BID #30 tab 09/06/17 Oxycodone HCl/Acetaminophen 1 - 2 tab PO Q4H PRN PRN #60 tab 09/06/17 [Percocet 5/325] ProMETHAzine [Phenergan] 25 mg PO Q4H PRN PRN #10 tab 09/06/17 Current Medications Generic Name Dose Route Start Last Admin Trade Name Freq PRN Reason Stop Dose Admin Acetaminophen 1,000 mg 09/06/17 22:00 09/07/17 13:55 Tylenol PO 1,000 mg Q8 JENNIFER Administration Albuterol Sulfate 1 - 2 puff 09/06/17 19:20 Proair Hfa (Sp) Surgery/Vent Pts INHALATION Q6H PRN PRN SOB &/OR WHEEZING Aspirin 325 mg 09/07/17 08:00 09/07/17 09:00 Ecotrin PO 325 mg BIDCM JENNIFER Administration Atorvastatin Calcium 40 mg 09/06/17 22:00 09/06/17 21:59 Lipitor PO 40 mg QHS JENNIFER Administration Bisacodyl 10 mg 09/06/17 20:54 Dulcolax RECTAL DAILY PRN Constipation Famotidine 20 mg 09/06/17 18:00 09/07/17 04:19 Pepcid PO 20 mg BID JENNIFER Administration Gabapentin 600 mg 09/06/17 17:45 09/07/17 11:53 Neurontin PO 600 mg TIDCM JENNIFER Administration Nebivolol 5 mg 09/06/17 22:00 09/06/17 21:00 Bystolic PO 5 mg QHS JENNIFER Administration Oxycodone HCl 5 mg 09/06/17 20:55 09/07/17 13:54 Oxyir PO 5 mg Q4H PRN PRN Administration SEVERE PAIN (6-10) Polyethylene Glycol 17 gm 09/07/17 06:00 09/07/17 04:20 Miralax PO 17 gm DAILY JENNIFER Administration Promethazine HCl 25 mg 09/06/17 17:19 09/07/17 05:24 Phenergan PO 25 mg Q4H PRN PRN Administration NAUSEA Senna/Docusate Sodium 2 tablet 09/07/17 06:00 09/07/17 04:19 Senokot-S, Yessy-Colace PO 2 tablet BID JENNIFER Administration Tuberculin PPD 5 tu 09/14/17 10:00 Tubersol, Aplisol, Ppd ID 09/14/17 10:01 X1 ONE Problem List (Last Updated 08/13/17 @ 13:21 by Tory Lugo) Osteoarthritis of right knee (Chronic) Diabetes mellitus (Chronic) Hypertension (Chronic) Hyperlipidemia (Chronic) Polyneuropathy (Chronic) GERD (gastroesophageal reflux disease) (Chronic) Constipation (Chronic) Vital Signs Temp Pulse Resp BP Pulse Ox 97.6 F L 88 18 105/62 98 09/07/17 09:27 09/07/17 09:27 09/07/17 09:27 09/07/17 09:27 09/07/17 12:41 Oxygen Flow Rate (L/min) 2 Oxygen Delivery Method Nasal Cannula Weight: 122.47 kg Body Mass Index (BMI) 48.2 Finger Stick Blood Glucose 137 Sodium 145 mmol/L (136-145) 09/07/17 05:15 Potassium 4.5 mmol/L (3.5-5.1) 09/07/17 05:15 Chloride 107 mmol/L (98-107) 09/07/17 05:15 Carbon Dioxide 32.0 mmol/L (21.0-32.0) 09/07/17 05:15 Anion Gap 6 (5-15) 09/07/17 05:15 BUN 17 mg/dL (7-18) 09/07/17 05:15 Creatinine 1.31 mg/dL (0.55-1.02) H 09/07/17 05:15 Est GFR (MDRD) Af Amer 52 mL/min (>60) L 09/07/17 05:15 Est GFR (MDRD) Non-Af 43 mL/min (>60) L 09/07/17 05:15 BUN/Creatinine Ratio 13.0 RATIO (10-20) 09/07/17 05:15 Glucose 109 mg/dL (74-106) H 09/07/17 05:15 Assessment/Plan: Psychotropic Medications: Unnecessary Medications: Bowel Regimen: - Provider Comments Provider responsibility: Provider responsible to enter orders to implement recommendations Provider Comments to Recommendations by Pharmacy: Agree
[2017-09-07 12:01] LABS: Bedside Glucose 138 mg/dL (70-110)
[2017-09-07 12:41] VITALS: O2SAT 98
[2017-09-07 12:48] LABS: Pathologist Review Reviewed
[2017-09-07 15:08] LABS: Bacteria 0 SEEN /hpf (None Seen); Mucous, Urine 0 SEEN /hpf (<or=2+); Red Blood Cells-Urine 0 SEEN /hpf (0-5); White Blood Cells 0 SEEN /hpf (0-5)
[2017-09-07 15:13] LABS: Color, Urine Yellow (Yellow); Glucose, Dipstick 1000 mg/dl (Normal); Ketone-Dipstick Negative (Negative); Leukocyte Esterase-Dipstick Negative /ul (Negative); Nitrite-Dipstick Negative (Negative); Occult Blood-Urine Negative /ul (Negative); Protein-Dipstick 15 mg/dl (Negative); Urine Bilirubin Dipstick Negative (Negative); Urine Clarity Clear (Clear); Urine Urobilinogen Normal (Normal)
--- NOTE | 2017-09-07 15:17 | NURSING ---
Dr. Mo reviewed UA, NNO
[2017-09-07 15:20] LABS: Squamous Epithelial Cells - UA 0-5 SEEN /hpf (5-10)
[2017-09-07 16:00] VITALS: BP 128/86; PULSE 93; RESP 20; TEMP 36.6; O2SAT 97
--- NOTE | 2017-09-07 16:48 | RAD_ITS ---
XR Abdomen 1 View INDICATION: ABDOMINAL PAIN COMPARISON: None TECHNIQUE: Frontal view of the abdomen supine FINDINGS: There is seen throughout the colon to the level of the rectum. No significantly distended air-filled small bowel loops is seen to suggest obstruction. Left total hip arthroplasty is noted and degenerative changes at the thoracolumbar spine. RAD/Abdomen Single View (Portable) IMPRESSION: Mild colonic ileus. No evidence of bowel obstruction. at 1718 Reported and signed by: Sharonda Anderson MD Electronically Signed: Sharonda Anderson MD at 16:17 EST Tel , Service support ,
--- NOTE | 2017-09-07 16:48 | RAD_ITS ---
XR Chest 1 View INDICATION: SOB, COUGH COMPARISON: July 18, 2013 TECHNIQUE: Frontal view of the chest FINDINGS: The heart size is enlarged. Lung volumes are low. Pleural thickening is noted at the bilateral lung apices, new compared to the prior study. Bases are not well seen due to incomplete inspiration, consider additional lateral view. RAD/Chest 1 View (Portable) IMPRESSION: New cardiomegaly. New biapical pleural thickening. Incomplete inspiration with crowding of the interstitial markings at the lung bases, consider additional lateral view for further evaluation. at 1721 Reported and signed by: Sharonda Anderson MD Electronically Signed: Sharonda Anderson MD at 16:20 EST Tel , Service support ,
[2017-09-07 17:11] LABS: Bedside Glucose 137 mg/dL (70-110)
--- NOTE | 2017-09-07 18:30 | RAD_ITS ---
XR Chest 1 View INDICATION: LATERAL VIEW ONLY, AP VIEW WAS PERFORMED EARLIER THIS EVENING COMPARISON: Frontal view from earlier the same day TECHNIQUE: Lateral view of the chest FINDINGS: The lung bases are better appreciated on the lateral view, and there are mild atelectatic changes at the left lung base. RAD/Chest 1 View IMPRESSION: Mild left basilar atelectasis. at 1908 Reported and signed by: Sharonda Anderson MD Electronically Signed: Sharonda Anderson MD at 18:06 EST Tel , Service support ,
--- NOTE | 2017-09-07 18:49 | NURSING ---
Addendum entered by Suzy Lam 09/07/17 18:50: Pt and daughters aware of new orders. Original Note: Dr. Mo reviewed KUB and CXR, N.O. received.
--- NOTE | 2017-09-07 19:38 | NURSING ---
Dr Mo updated on CXR results. N.O. to encourage IS.
[2017-09-07 19:48] LABS: BNP,B-Type NATRIURETIC PEPTIDE 40.8 pg/mL (0-100)
[2017-09-07 21:40] LABS: Bedside Glucose 154 mg/dL (70-110)
[2017-09-07] MEDS: Atorvastatin Calcium 40 MG Tablet PO (22:07)
[2017-09-07] MEDS: Empagliflozin 10 MG Tablet PO (22:07)
[2017-09-07] MEDS: metFORMIN HCl 1,000 MG Tablet 1000 MG PO (22:07)
--- NOTE | 2017-09-08 03:05 | NURSING ---
SSE completed at this time. Pt tolerated procedure well.
[2017-09-08] MEDS: Senna/Docusate Sodium 1 Tablet 2 TABLET PO ×2 (06:25→18:14)
[2017-09-08] MEDS: Acetaminophen 500 MG Tablet 1000 MG PO ×3 (06:25→21:19)
[2017-09-08] MEDS: Famotidine 20 MG Tablet PO ×2 (06:25→18:14)
[2017-09-08 06:41] LABS: Bedside Glucose 102 mg/dL (70-110)
[2017-09-08] MEDS: Aspirin E.C. 325 MG Tablet PO ×2 (08:28→18:14)
[2017-09-08 11:21] LABS: Bedside Glucose 151 mg/dL (70-110)
[2017-09-08 15:24] VITALS: BP 139/71; PULSE 84; RESP 18; TEMP 36.1; O2SAT 93
[2017-09-08 17:06] LABS: Bedside Glucose 199 mg/dL (70-110)
[2017-09-08] MEDS: metFORMIN HCl 1,000 MG Tablet 1000 MG PO (21:19)
[2017-09-08] MEDS: Atorvastatin Calcium 40 MG Tablet PO (21:19)
[2017-09-08] MEDS: Empagliflozin 10 MG Tablet PO (21:19)
[2017-09-08 21:23] VITALS: PULSE 91; O2SAT 95
[2017-09-08 21:41] LABS: Bedside Glucose 195 mg/dL (70-110)
[2017-09-09] MEDS: Acetaminophen 500 MG Tablet 1000 MG PO ×3 (06:14→20:33)
[2017-09-09] MEDS: Polyethylene Glycol 3350 17 GM PACKET PO (06:15)
[2017-09-09] MEDS: Famotidine 20 MG Tablet PO ×2 (06:15→17:32)
[2017-09-09] MEDS: Senna/Docusate Sodium 1 Tablet 2 TABLET PO ×2 (06:15→17:32)
[2017-09-09] MEDS: Aspirin E.C. 325 MG Tablet PO ×2 (08:21→17:32)
[2017-09-09 10:00] VITALS: PULSE 87; RESP 18; O2SAT 94
[2017-09-09 11:36] LABS: Bedside Glucose 166 mg/dL (70-110)
--- NOTE | 2017-09-09 14:13 | NURSING ---
Pt noted to have swelling, warmth and some redness around Right knee incision. No pain in calve with flexion or extension of foot. Edema noted bilateral feet +1. pedal pulses strong and palpable. Will notify Brigitte GREGG of new onset swelling and warmth.
[2017-09-09 15:08] VITALS: BP 152/63; PULSE 78; RESP 20; TEMP 36.7; O2SAT 96
[2017-09-09 17:26] LABS: Bedside Glucose 139 mg/dL (70-110)
[2017-09-09] MEDS: Empagliflozin 10 MG Tablet PO (20:34)
[2017-09-09] MEDS: Atorvastatin Calcium 40 MG Tablet PO (20:34)
[2017-09-09] MEDS: metFORMIN HCl 1,000 MG Tablet 1000 MG PO (20:34)
[2017-09-09 20:36] LABS: Bedside Glucose 217 mg/dL (70-110)
[2017-09-10] MEDS: Acetaminophen 500 MG Tablet 1000 MG PO ×3 (05:57→21:00)
[2017-09-10] MEDS: Famotidine 20 MG Tablet PO ×2 (05:58→17:09)
[2017-09-10] MEDS: Senna/Docusate Sodium 1 Tablet 2 TABLET PO (05:58)
[2017-09-10] MEDS: Polyethylene Glycol 3350 17 GM PACKET PO (05:58)
[2017-09-10 06:40] LABS: Bedside Glucose 184 mg/dL (70-110)
[2017-09-10] MEDS: Aspirin E.C. 325 MG Tablet PO ×2 (07:49→17:09)
--- NOTE | 2017-09-10 08:00 | NURSING ---
THIS NURSE REMOVED DRESSING TO KNEE. KNEE,RED,WARM AND SWOLLEN X2. DERMABOND IN TACT. REPORTED TO CRISTINO BRUNSON
[2017-09-10] MEDS: Cephalexin 500 MG Capsule PO ×3 (09:47→21:01)
[2017-09-10 11:46] LABS: Bedside Glucose 130 mg/dL (70-110)
--- NOTE | 2017-09-10 12:07 | CASEMGMT ---
Insurance Clinical information faxed. Pending continued stay approval at this time. Auth#[id number] Nehal ORR, EMAIL PRODUCTION SPECIALIST
--- NOTE | 2017-09-10 14:38 | CHAPLAIN ---
Type of Pastoral Visit _x__ Initial Visit ___ Follow-up Visit ___ On-call Visit ___ General Patient Visit ___ Spiritual Assessment ___ Family Conference ___ Bereavement ___ Rapid Response ___ Code Blue ___ Other (describe below) Pastoral Care Referral From _x__ Patient ___ Family ___ Nurse ___ Physician ___ Pre Coder ___ International Trade Analyst ___ Other (describe below) Sacrament/Intervention _x__ Active listening ___ Anointing ___ Bahai ___ Bereavement ___ Communion ___ Marla exploration ___ ___ Life review _x__ Prayer ___ Reconciliation ___ Sacrament of Sick _x__ Supportive presence ___ Wedding ___ Other (describe below) Pastoral Comments
[2017-09-10 16:33] VITALS: BP 111/72; PULSE 89; RESP 18; TEMP 36.3; O2SAT 95
[2017-09-10 16:51] LABS: Bedside Glucose 159 mg/dL (70-110)
[2017-09-10] MEDS: Doxycycline 100 MG CAPSULE PO (17:09)
[2017-09-10] MEDS: metFORMIN HCl 1,000 MG Tablet 1000 MG PO (21:01)
[2017-09-10] MEDS: Atorvastatin Calcium 40 MG Tablet PO (21:01)
[2017-09-10] MEDS: Empagliflozin 10 MG Tablet PO (21:02)
[2017-09-10 21:03] VITALS: BP 157/83; PULSE 91
[2017-09-10 21:11] LABS: Bedside Glucose 195 mg/dL (70-110)
[2017-09-11] MEDS: Polyethylene Glycol 3350 17 GM PACKET PO (05:22)
[2017-09-11] MEDS: Cephalexin 500 MG Capsule PO ×3 (05:22→21:24)
[2017-09-11] MEDS: Acetaminophen 500 MG Tablet 1000 MG PO ×3 (05:22→21:24)
[2017-09-11] MEDS: Doxycycline 100 MG CAPSULE PO ×2 (05:23→17:03)
[2017-09-11] MEDS: Famotidine 20 MG Tablet PO ×2 (05:23→17:03)
[2017-09-11 06:51] LABS: Bedside Glucose 212 mg/dL (70-110)
[2017-09-11] MEDS: Aspirin E.C. 325 MG Tablet PO ×2 (09:04→17:03)
--- NOTE | 2017-09-11 09:41 | CASEMGMT ---
Insurance Continued stay approved with next update due on 09/14/17 Auth#[id number] Nehal ORR, NET PROGRAMMER
[2017-09-11 11:46] LABS: Bedside Glucose 173 mg/dL (70-110)
[2017-09-11 15:28] VITALS: BP 131/73; PULSE 81; RESP 18; TEMP 36.6; O2SAT 96
[2017-09-11] MEDS: Senna/Docusate Sodium 1 Tablet 2 TABLET PO (17:03)
[2017-09-11 17:06] LABS: Bedside Glucose 144 mg/dL (70-110)
[2017-09-11 21:16] LABS: Bedside Glucose 232 mg/dL (70-110)
[2017-09-11] MEDS: metFORMIN HCl 1,000 MG Tablet 1000 MG PO (21:24)
[2017-09-11] MEDS: Atorvastatin Calcium 40 MG Tablet PO (21:24)
[2017-09-11] MEDS: Empagliflozin 10 MG Tablet PO (21:24)
[2017-09-12] MEDS: Acetaminophen 500 MG Tablet 1000 MG PO ×3 (05:57→21:07)
[2017-09-12] MEDS: Cephalexin 500 MG Capsule PO ×3 (05:58→21:07)
[2017-09-12] MEDS: Doxycycline 100 MG CAPSULE PO ×2 (05:58→17:20)
[2017-09-12] MEDS: Famotidine 20 MG Tablet PO ×2 (05:58→17:19)
[2017-09-12 07:01] LABS: Bedside Glucose 217 mg/dL (70-110)
[2017-09-12] MEDS: Aspirin E.C. 325 MG Tablet PO ×2 (08:34→17:19)
--- NOTE | 2017-09-12 10:24 | CASEMGMT ---
Plan of care meeting held. Resident present, no support person present. Resident to continue with further care and treatment on the Transitional Care Unit at this time. Resident next insurance update is due on 09/14/17. Resident plans to discharge home alone at time of discharge. Support given. Will continue to follow. Nehal ORR, EMERGENCY ROOM CLINICIAN
[2017-09-12 11:41] LABS: Bedside Glucose 185 mg/dL (70-110)
--- NOTE | 2017-09-12 15:38 | CASEMGMT ---
Brief interview for mental status (BIMS) and resident mood interview (PHQ-9) completed on this day. BIMS score 15. PHQ-9 score 10/26
[2017-09-12 16:00] VITALS: BP 142/67; PULSE 82; RESP 18; TEMP 36.4; O2SAT 97
[2017-09-12 17:00] LABS: Bedside Glucose 198 mg/dL (70-110)
[2017-09-12] MEDS: Senna/Docusate Sodium 1 Tablet 2 TABLET PO (17:19)
[2017-09-12 21:05] LABS: Bedside Glucose 223 mg/dL (70-110)
[2017-09-12] MEDS: Empagliflozin 10 MG Tablet PO (21:07)
[2017-09-12] MEDS: metFORMIN HCl 1,000 MG Tablet 1000 MG PO (21:07)
[2017-09-12] MEDS: Atorvastatin Calcium 40 MG Tablet PO (21:08)
[2017-09-13] MEDS: Famotidine 20 MG Tablet PO ×2 (06:06→16:46)
[2017-09-13] MEDS: Cephalexin 500 MG Capsule PO ×3 (06:06→21:00)
[2017-09-13] MEDS: Acetaminophen 500 MG Tablet 1000 MG PO ×3 (06:06→21:00)
[2017-09-13] MEDS: Doxycycline 100 MG CAPSULE PO ×2 (06:06→16:46)
[2017-09-13 06:41] LABS: Bedside Glucose 152 mg/dL (70-110)
[2017-09-13] MEDS: Aspirin E.C. 325 MG Tablet PO ×2 (08:44→16:46)
[2017-09-13 11:35] LABS: Bedside Glucose 213 mg/dL (70-110)
[2017-09-13 15:22] VITALS: BP 139/73; PULSE 85; RESP 20; TEMP 36.5; O2SAT 97
[2017-09-13] MEDS: Senna/Docusate Sodium 1 Tablet 2 TABLET PO (16:46)
[2017-09-13 16:50] LABS: Bedside Glucose 146 mg/dL (70-110)
[2017-09-13] MEDS: Atorvastatin Calcium 40 MG Tablet PO (21:00)
[2017-09-13] MEDS: Empagliflozin 10 MG Tablet PO (21:00)
[2017-09-13] MEDS: metFORMIN HCl 1,000 MG Tablet 1000 MG PO (21:00)
[2017-09-13 21:01] LABS: Bedside Glucose 229 mg/dL (70-110)
[2017-09-14] MEDS: Doxycycline 100 MG CAPSULE PO ×2 (05:41→16:47)
[2017-09-14] MEDS: Polyethylene Glycol 3350 17 GM PACKET PO (05:41)
[2017-09-14] MEDS: Cephalexin 500 MG Capsule PO ×3 (05:41→21:12)
[2017-09-14] MEDS: Acetaminophen 500 MG Tablet 1000 MG PO ×3 (05:41→21:12)
[2017-09-14] MEDS: Famotidine 20 MG Tablet PO ×2 (05:41→16:47)
[2017-09-14 06:16] LABS: Bedside Glucose 185 mg/dL (70-110)
[2017-09-14 06:30] LABS: Absolute Lymphocyte Count 3.43 X10^3/ul (0.83-4.51); Absolute Neutrophil Count 8.6 X10^3/uL (2.0-7.7); Basophil# 0.05 X10^3/uL; Basophil% 0.4 % (0-1); Eosinophil# 0.14 X10^3/uL; Hematocrit 35.2 % (37-47); Lymphocyte # 3.43 X10^3/ul (4.0); Lymphocyte % 25.3 % (19-41); Mean Corp Hgb Conc 31.3 g/gl (32-36); Mean Corpuscular Hgb 24.8 pg (27.0-32.0); Mean Corpuscular Volume 79.5 fL (81-99); Mean Platelet Vol. 9.4 fl (6.2-12.0); Monocyte# 1.26 X10^3/uL; Monocyte% 9.3 % (0-10); Neutrophil # 8.64 X10^3/uL (2.7-7.7); Neutrophil % 63.7 % (47-70); Platelet Count 320 K/mm3 (150-450); RBC Distribution Width CV 15.6 % (11.6-14.6); RBC Distribution Width SD 45.4 fl (35.1-43.9); Red Blood Count 4.43 M/mm3 (4.2-5.4); White Blood Count 13.6 K/mm3 (4.4-11.0)
[2017-09-14 06:31] LABS: POSITIVE COUNT NO; POSITIVE DIFFERENTIAL NO; POSITIVE MORPHOLOGY NO
[2017-09-14 06:52] LABS: Anion Gap 6 (5-15); BUN 12 mg/dL (7-18); BUN/Creat Ratio 11.9 RATIO (10-20); Calcium,Total 9.2 mg/dL (8.5-10.1); Chloride 106 mmol/L (98-107); Creatinine, Serum 1.01 mg/dL (0.55-1.02); EST Glomerular Filtration Rate 58 mL/min (>60); Est Glom Filt Rate - Afr Amer 70 mL/min (>60); Glucose 177 mg/dL (74-106); Potassium 4.2 mmol/L (3.5-5.1); Sodium Level 141 mmol/L (136-145)
[2017-09-14] MEDS: Aspirin E.C. 325 MG Tablet PO ×2 (07:46→16:47)
[2017-09-14 11:45] LABS: Bedside Glucose 175 mg/dL (70-110)
--- NOTE | 2017-09-14 11:46 | CASEMGMT ---
Insurance Clinical information faxed. Pending continued stay approval at this time. Auth#[id number] Nehal ORR, TRUST AND ESTATES ATTORNEY
[2017-09-14] MEDS: Tuberculin,Purif.prot.deriv. 50 TU/ML Vial 5 ML ID (12:34)
[2017-09-14 16:20] VITALS: BP 134/65; PULSE 83; RESP 16; TEMP 36.2; O2SAT 95
[2017-09-14 17:10] LABS: Bedside Glucose 192 mg/dL (70-110)
--- NOTE | 2017-09-14 20:15 | NURSING ---
Pt has not been trying to get up on own per staff. PA removed. Educated pt on making sure to use call light when needing to get up. Pt in agreement. Call light in reach.
[2017-09-14 20:51] LABS: Bedside Glucose 209 mg/dL (70-110)
[2017-09-14] MEDS: metFORMIN HCl 1,000 MG Tablet 1000 MG PO (21:12)
[2017-09-14] MEDS: Atorvastatin Calcium 40 MG Tablet PO (21:12)
[2017-09-14] MEDS: Empagliflozin 10 MG Tablet PO (21:12)
[2017-09-15] MEDS: Doxycycline 100 MG CAPSULE PO ×2 (06:29→18:10)
[2017-09-15] MEDS: Cephalexin 500 MG Capsule PO ×3 (06:29→20:50)
[2017-09-15] MEDS: Acetaminophen 500 MG Tablet 1000 MG PO ×3 (06:29→20:50)
[2017-09-15] MEDS: Famotidine 20 MG Tablet PO ×2 (06:29→18:10)
[2017-09-15 06:45] LABS: Bedside Glucose 184 mg/dL (70-110)
[2017-09-15] MEDS: Aspirin E.C. 325 MG Tablet PO ×2 (08:31→18:10)
[2017-09-15 10:00] VITALS: PULSE 81; RESP 18; O2SAT 94
[2017-09-15 11:40] LABS: Bedside Glucose 208 mg/dL (70-110)
[2017-09-15 16:00] VITALS: BP 119/59; PULSE 67; RESP 18; TEMP 36.5; O2SAT 96
[2017-09-15 17:11] LABS: Bedside Glucose 196 mg/dL (70-110)
[2017-09-15] MEDS: Atorvastatin Calcium 40 MG Tablet PO (20:50)
[2017-09-15] MEDS: metFORMIN HCl 1,000 MG Tablet 1000 MG PO (20:50)
[2017-09-15] MEDS: Empagliflozin 10 MG Tablet PO (20:50)
[2017-09-15 21:30] LABS: Bedside Glucose 272 mg/dL (70-110)
[2017-09-16] MEDS: Doxycycline 100 MG CAPSULE PO ×2 (06:40→16:47)
[2017-09-16] MEDS: Acetaminophen 500 MG Tablet 1000 MG PO ×3 (06:40→20:17)
[2017-09-16] MEDS: Famotidine 20 MG Tablet PO ×2 (06:40→16:47)
[2017-09-16] MEDS: Cephalexin 500 MG Capsule PO ×3 (06:40→20:17)
[2017-09-16] MEDS: Senna/Docusate Sodium 1 Tablet 2 TABLET PO (06:40)
[2017-09-16] MEDS: Polyethylene Glycol 3350 17 GM PACKET PO (06:41)
[2017-09-16 07:06] LABS: Bedside Glucose 216 mg/dL (70-110)
[2017-09-16] MEDS: Aspirin E.C. 325 MG Tablet PO ×2 (08:01→16:47)
[2017-09-16 11:35] LABS: Bedside Glucose 224 mg/dL (70-110)
[2017-09-16 15:27] VITALS: BP 132/66; PULSE 76; RESP 18; TEMP 36.8; O2SAT 97
[2017-09-16 16:50] LABS: Bedside Glucose 216 mg/dL (70-110)
[2017-09-16 20:00] VITALS: BP 126/68; PULSE 84; RESP 18; TEMP 37.1; O2SAT 97
[2017-09-16] MEDS: Atorvastatin Calcium 40 MG Tablet PO (20:16)
[2017-09-16] MEDS: metFORMIN HCl 1,000 MG Tablet 1000 MG PO (20:16)
[2017-09-16] MEDS: Empagliflozin 10 MG Tablet PO (20:17)
[2017-09-16 21:16] LABS: Bedside Glucose 242 mg/dL (70-110)
[2017-09-17] MEDS: Famotidine 20 MG Tablet PO ×2 (06:40→17:37)
[2017-09-17] MEDS: Acetaminophen 500 MG Tablet 1000 MG PO ×3 (06:41→20:30)
[2017-09-17] MEDS: Doxycycline 100 MG CAPSULE PO ×2 (06:41→17:37)
[2017-09-17] MEDS: Cephalexin 500 MG Capsule PO ×3 (06:41→20:30)
[2017-09-17 06:51] LABS: Bedside Glucose 201 mg/dL (70-110)
[2017-09-17] MEDS: Aspirin E.C. 325 MG Tablet PO ×2 (08:11→17:37)
[2017-09-17 10:00] VITALS: PULSE 86; RESP 18; O2SAT 94
[2017-09-17 11:36] LABS: Bedside Glucose 213 mg/dL (70-110)
[2017-09-17 16:00] VITALS: BP 130/58; PULSE 85; RESP 18; TEMP 36.7; O2SAT 94
[2017-09-17 17:01] LABS: Bedside Glucose 194 mg/dL (70-110)
[2017-09-17] MEDS: Senna/Docusate Sodium 1 Tablet 2 TABLET PO (17:37)
[2017-09-17] MEDS: Empagliflozin 10 MG Tablet PO (20:30)
[2017-09-17] MEDS: metFORMIN HCl 1,000 MG Tablet 1000 MG PO (20:30)
[2017-09-17] MEDS: Atorvastatin Calcium 40 MG Tablet PO (20:30)
[2017-09-17 21:11] LABS: Bedside Glucose 226 mg/dL (70-110)
[2017-09-18 06:10] VITALS: PULSE 80; RESP 16; O2SAT 96
[2017-09-18] MEDS: Acetaminophen 500 MG Tablet 1000 MG PO ×3 (06:17→21:16)
[2017-09-18] MEDS: Famotidine 20 MG Tablet PO ×2 (06:17→16:54)
[2017-09-18 06:55] LABS: Bedside Glucose 200 mg/dL (70-110)
[2017-09-18] MEDS: Aspirin E.C. 325 MG Tablet PO ×2 (07:46→16:54)
--- NOTE | 2017-09-18 10:20 | CASEMGMT ---
Insurance Continued stay approved with next update due on 09/21/17 Auth#[id number] Nehal ORR, CRAB FISHER
[2017-09-18 11:21] LABS: Bedside Glucose 191 mg/dL (70-110)
[2017-09-18 16:00] VITALS: BP 127/70; PULSE 79; RESP 16; TEMP 36.6; O2SAT 96
[2017-09-18] MEDS: Senna/Docusate Sodium 1 Tablet 2 TABLET PO (16:54)
[2017-09-18 17:05] LABS: Bedside Glucose 166 mg/dL (70-110)
[2017-09-18 21:01] LABS: Bedside Glucose 261 mg/dL (70-110)
[2017-09-18] MEDS: Empagliflozin 10 MG Tablet PO (21:16)
[2017-09-18] MEDS: Atorvastatin Calcium 40 MG Tablet PO (21:16)
[2017-09-18] MEDS: metFORMIN HCl 1,000 MG Tablet 1000 MG PO (21:16)
[2017-09-19] MEDS: Famotidine 20 MG Tablet PO ×2 (05:24→17:41)
[2017-09-19] MEDS: Acetaminophen 500 MG Tablet 1000 MG PO ×3 (05:24→21:15)
[2017-09-19 06:35] LABS: Bedside Glucose 186 mg/dL (70-110)
[2017-09-19] MEDS: Aspirin E.C. 325 MG Tablet PO ×2 (07:29→17:41)
[2017-09-19 10:00] VITALS: PULSE 84; RESP 18; O2SAT 95
[2017-09-19 11:25] LABS: Bedside Glucose 204 mg/dL (70-110)
--- NOTE | 2017-09-19 13:52 | MDS.RN ---
Information for the mds was obtained from review of the clinical record, interview of resident, staff, and direct observation of resident's care.
[2017-09-19 15:51] VITALS: BP 140/56; PULSE 84; RESP 17; TEMP 36.7; O2SAT 97
--- NOTE | 2017-09-19 16:34 | PCM.PN.ORT ---
Subjective: 67-year-old female status post right total knee arthroplasty. Patient is doing well. Patient is roughly 2 weeks out at this time. Patient actively stood up for me from her wheelchair and was very happy with the overall outcome at this time. Patient still in transitional care unit but will be getting ready to go home I believe shortly. No other issues at this time. - Physical Exam General: Alert, Oriented x3, Cooperative, No apparent distress Musculoskeletal: - - Incisions clean dry and intact. No signs of erythema. No calf pain. Negative Homans. Range of motion 0 to about 95. Patient able perform straight leg raise. Vital Signs Temp Pulse Resp BP Pulse Ox 98.1 F 84 17 140/56 H 97 09/19/17 15:51 09/19/17 15:51 09/19/17 15:51 09/19/17 15:51 09/19/17 15:51 Oxygen Flow Rate (L/min) 1 Oxygen Delivery Method Room Air Weight: 262 lb 9.129 oz Body Mass Index (BMI) 48.2 Finger Stick Blood Glucose 137 Intake and Output for Last 24 Hours 09/17/17 09/18/17 09/19/17 23:59 23:59 23:59 Intake Total 600 / 600 840 / 840 360 / 360 Balance 600 / 600 840 / 840 360 / 360 POC Glucose 09/19/17 09/19/17 09/18/17 11:09 06:29 20:56 POC Glucose 204 H 186 H 261 H 09/18/17 16:51 POC Glucose 166 H Medical Necessity - Tobacco Use Smoking Status: Never smoker Tobacco Use: Non-smoker Assessment/Plan Assessment: Postop day 14 status post right total knee arthroplasty doing well. Plan: At this point time patient just needs to continue to work on outpatient physical therapy upon discharge from the transitional care unit. Patient can transition from 325 twice daily of aspirin to 81 mg twice daily at this time. At a minimum 81 mg per day to be not only cardioprotective but also to aid with prevention of DVTs. I will see the patient in my office in 4 weeks for x-rays. Any major issues please contact me.
[2017-09-19 17:11] LABS: Bedside Glucose 199 mg/dL (70-110)
[2017-09-19 20:26] LABS: Bedside Glucose 236 mg/dL (70-110)
[2017-09-19] MEDS: metFORMIN HCl 1,000 MG Tablet 1000 MG PO (21:15)
[2017-09-19] MEDS: Empagliflozin 10 MG Tablet PO (21:15)
[2017-09-19] MEDS: Atorvastatin Calcium 40 MG Tablet PO (21:15)
[2017-09-20] MEDS: Acetaminophen 500 MG Tablet 1000 MG PO ×3 (06:27→21:20)
[2017-09-20] MEDS: Famotidine 20 MG Tablet PO ×2 (06:27→16:56)
[2017-09-20 06:51] LABS: Bedside Glucose 190 mg/dL (70-110)
[2017-09-20] MEDS: Aspirin E.C. 325 MG Tablet PO ×2 (07:36→16:56)
[2017-09-20 11:26] LABS: Bedside Glucose 212 mg/dL (70-110)
--- NOTE | 2017-09-20 14:15 | CASEMGMT ---
Brief interview for mental status (BIMS) and resident mood interview (PHQ-9) completed on this day. BIMS score 15. PHQ-9 score 10/26
[2017-09-20 15:16] LABS: Bedside Glucose 201 mg/dL (70-110)
[2017-09-20 15:17] VITALS: BP 127/73; PULSE 84; RESP 18; TEMP 36.7; O2SAT 98
--- NOTE | 2017-09-20 15:28 | NURSING ---
AID CALLED THIS NURSE TO PT ROOM. PT STATED SHE WAS DIZZY. VITAL SIGNS WITH IN NORMAL LIMITS. BLOOD SURGER CHECKED. PT STATED SHE JUST GOT DONE WITH PHYSICAL THERAPY. REPORTED TO CRISTINO BARRERA
[2017-09-20 16:55] LABS: Bedside Glucose 190 mg/dL (70-110)
[2017-09-20] MEDS: Senna/Docusate Sodium 1 Tablet 2 TABLET PO (16:55)
[2017-09-20 20:55] LABS: Bedside Glucose 227 mg/dL (70-110)
[2017-09-20] MEDS: Atorvastatin Calcium 40 MG Tablet PO (21:20)
[2017-09-20] MEDS: Empagliflozin 10 MG Tablet PO (21:20)
[2017-09-20] MEDS: metFORMIN HCl 1,000 MG Tablet 1000 MG PO (21:20)
[2017-09-20 21:25] VITALS: O2SAT 95
[2017-09-21 05:58] LABS: Absolute Lymphocyte Count 2.49 X10^3/ul (0.83-4.51); Absolute Neutrophil Count 8.9 X10^3/uL (2.0-7.7); Basophil# 0.02 X10^3/uL; Basophil% 0.2 % (0-1); Eosinophil# 0.15 X10^3/uL; Eosinophils% 1.2 % (0-5); Hematocrit 35.2 % (37-47); Lymphocyte # 2.49 X10^3/ul (4.0); Lymphocyte % 19.8 % (19-41); Mean Corp Hgb Conc 31.3 g/gl (32-36); Mean Corpuscular Hgb 24.7 pg (27.0-32.0); Mean Corpuscular Volume 78.9 fL (81-99); Mean Platelet Vol. 10.4 fl (6.2-12.0); Monocyte# 0.96 X10^3/uL; Monocyte% 7.6 % (0-10); Neutrophil % 70.7 % (47-70); Platelet Count 448 K/mm3 (150-450); RBC Distribution Width CV 16.2 % (11.6-14.6); Red Blood Count 4.46 M/mm3 (4.2-5.4); White Blood Count 12.6 K/mm3 (4.4-11.0)
[2017-09-21 06:06] LABS: POSITIVE COUNT NO; POSITIVE DIFFERENTIAL NO; POSITIVE MORPHOLOGY NO
[2017-09-21] MEDS: Famotidine 20 MG Tablet PO ×2 (06:06→17:44)
[2017-09-21] MEDS: Acetaminophen 500 MG Tablet 1000 MG PO ×3 (06:06→20:50)
[2017-09-21 06:20] LABS: Bedside Glucose 187 mg/dL (70-110)
[2017-09-21 06:22] LABS: Anion Gap 8 (5-15); BUN 9 mg/dL (7-18); BUN/Creat Ratio 9.9 RATIO (10-20); Calcium,Total 8.6 mg/dL (8.5-10.1); Chloride 109 mmol/L (98-107); Creatinine, Serum 0.91 mg/dL (0.55-1.02); EST Glomerular Filtration Rate 65 mL/min (>60); Est Glom Filt Rate - Afr Amer 79 mL/min (>60); Estimated Creatinine Clearance 50.38 ml/min; Glucose 187 mg/dL (74-106); Potassium 4.2 mmol/L (3.5-5.1); Sodium Level 143 mmol/L (136-145)
[2017-09-21] MEDS: Aspirin E.C. 325 MG Tablet PO ×2 (08:21→17:44)
[2017-09-21 12:01] LABS: Bedside Glucose 192 mg/dL (70-110)
--- NOTE | 2017-09-21 14:17 | CASEMGMT ---
Insurance Clinical information faxed. Pending continued stay approval at this time. Auth#[id number] Nehal ORR, POST ACUTE CARE NURSE PRACTITIONER
[2017-09-21 15:14] VITALS: BP 143/67; PULSE 84; RESP 20; TEMP 36.6; O2SAT 98
--- NOTE | 2017-09-21 15:22 | CHAPLAIN ---
Type of Pastoral Visit ___ Initial Visit _x__ Follow-up Visit ___ On-call Visit ___ General Patient Visit ___ Spiritual Assessment ___ Family Conference ___ Bereavement ___ Rapid Response ___ Code Blue ___ Other (describe below) Pastoral Care Referral From _x__ Patient ___ Family ___ Nurse ___ Physician ___ Surgical Supplies Sterilizer ___ Linux System Admin ___ Other (describe below) Sacrament/Intervention _x__ Active listening ___ Anointing ___ Congregational ___ Bereavement ___ Communion ___ Marla exploration ___ ___ Life review _x__ Prayer ___ Reconciliation ___ Sacrament of Sick ___ Supportive presence ___ Wedding ___ Other (describe below) Pastoral Comments
[2017-09-21 16:46] LABS: Bedside Glucose 188 mg/dL (70-110)
[2017-09-21] MEDS: Atorvastatin Calcium 40 MG Tablet PO (20:50)
[2017-09-21] MEDS: metFORMIN HCl 1,000 MG Tablet 1000 MG PO (20:50)
[2017-09-21] MEDS: Empagliflozin 10 MG Tablet PO (20:50)
[2017-09-21 21:25] LABS: Bedside Glucose 251 mg/dL (70-110)
[2017-09-22] MEDS: Famotidine 20 MG Tablet PO ×2 (06:23→16:58)
[2017-09-22] MEDS: Acetaminophen 500 MG Tablet 1000 MG PO ×3 (06:23→20:35)
[2017-09-22] MEDS: Senna/Docusate Sodium 1 Tablet 2 TABLET PO (06:24)
[2017-09-22 06:50] LABS: Bedside Glucose 167 mg/dL (70-110)
[2017-09-22] MEDS: Aspirin E.C. 325 MG Tablet PO ×2 (09:24→16:57)
[2017-09-22 11:56] LABS: Bedside Glucose 165 mg/dL (70-110)
[2017-09-22 15:52] VITALS: BP 117/57; PULSE 76; RESP 17; TEMP 36.6; O2SAT 98
[2017-09-22 16:55] LABS: Bedside Glucose 168 mg/dL (70-110)
[2017-09-22] MEDS: metFORMIN HCl 1,000 MG Tablet 1000 MG PO (20:35)
[2017-09-22] MEDS: Atorvastatin Calcium 40 MG Tablet PO (20:35)
[2017-09-22] MEDS: Empagliflozin 10 MG Tablet PO (20:35)
[2017-09-22 21:11] LABS: Bedside Glucose 226 mg/dL (70-110)
[2017-09-23] MEDS: Acetaminophen 500 MG Tablet 1000 MG PO ×3 (05:52→21:09)
[2017-09-23] MEDS: Famotidine 20 MG Tablet PO ×2 (05:52→16:46)
[2017-09-23 07:11] LABS: Bedside Glucose 168 mg/dL (70-110)
[2017-09-23] MEDS: Aspirin E.C. 325 MG Tablet PO ×2 (08:27→16:46)
[2017-09-23 11:16] LABS: Bedside Glucose 156 mg/dL (70-110)
[2017-09-23 16:00] VITALS: BP 124/73; PULSE 84; RESP 16; TEMP 36.5; O2SAT 99
[2017-09-23 17:20] LABS: Bedside Glucose 205 mg/dL (70-110)
[2017-09-23 19:32] VITALS: O2SAT 94
[2017-09-23 21:01] LABS: Bedside Glucose 201 mg/dL (70-110)
[2017-09-23] MEDS: Atorvastatin Calcium 40 MG Tablet PO (21:09)
[2017-09-23] MEDS: Empagliflozin 10 MG Tablet PO (21:09)
[2017-09-23] MEDS: metFORMIN HCl 1,000 MG Tablet 1000 MG PO (21:09)
[2017-09-24] MEDS: Polyethylene Glycol 3350 17 GM PACKET PO (05:54)
[2017-09-24] MEDS: Famotidine 20 MG Tablet PO ×2 (05:57→16:43)
[2017-09-24] MEDS: Senna/Docusate Sodium 1 Tablet 2 TABLET PO ×2 (05:57→16:43)
[2017-09-24] MEDS: Acetaminophen 500 MG Tablet 1000 MG PO ×3 (05:57→21:06)
[2017-09-24 07:11] LABS: Bedside Glucose 233 mg/dL (70-110)
[2017-09-24] MEDS: Aspirin E.C. 325 MG Tablet PO ×2 (07:58→16:43)
[2017-09-24 11:20] LABS: Bedside Glucose 180 mg/dL (70-110)
[2017-09-24 15:45] VITALS: BP 135/54; PULSE 73; RESP 20; TEMP 36.1; O2SAT 99
[2017-09-24 16:56] LABS: Bedside Glucose 152 mg/dL (70-110)
[2017-09-24 21:01] LABS: Bedside Glucose 250 mg/dL (70-110)
[2017-09-24] MEDS: Empagliflozin 10 MG Tablet PO (21:06)
[2017-09-24] MEDS: Atorvastatin Calcium 40 MG Tablet PO (21:06)
[2017-09-24] MEDS: metFORMIN HCl 1,000 MG Tablet 1000 MG PO (21:06)
[2017-09-25] MEDS: Acetaminophen 500 MG Tablet 1000 MG PO ×3 (06:34→21:06)
[2017-09-25] MEDS: Famotidine 20 MG Tablet PO ×2 (06:34→16:44)
[2017-09-25 06:46] LABS: Bedside Glucose 169 mg/dL (70-110)
--- NOTE | 2017-09-25 08:26 | NURSING ---
Dr Mo aware of Dr Mark note regarding decreasing Aspirin to 81 mg BID from 325mg. New order entered.
[2017-09-25] MEDS: Aspirin 81 MG TAB.CHEW PO ×2 (09:49→16:44)
[2017-09-25 11:21] LABS: Bedside Glucose 161 mg/dL (70-110)
[2017-09-25 15:11] VITALS: BP 145/77; PULSE 80; RESP 18; TEMP 36.6; O2SAT 96
--- NOTE | 2017-09-25 15:12 | CASEMGMT ---
Insurance: Continued stay denied. LCD 09/27/17 with D/C planned for Sunday09/28/17. Auth # [id number] ELPIDIO Abraham
--- NOTE | 2017-09-25 15:13 | CASEMGMT ---
Social Work: Met with patient to inform that [employer] has denied continued stay with LCD being 09/27/17 and D/C planned for Sunday09/28/17. Patient verbalizing understanding and is in agreement to D/C on Sunday. NOMNOC signed with copy provided to patient,copy put in chart and copy faxed to [facility]. SW to follow to assist with D/C planning. ELPIDIO Abraham
[2017-09-25 16:56] LABS: Bedside Glucose 165 mg/dL (70-110)
[2017-09-25 20:30] VITALS: PULSE 76; O2SAT 96
--- NOTE | 2017-09-25 20:34 | PCM.DC ---
- Discharge Diagnoses Current Active Problems: Current Active and Chronic Problems (Last Updated 08/13/17 @ 13:21 by Tory Lugo) Osteoarthritis of right knee (Chronic) Diabetes mellitus (Chronic) Hypertension (Chronic) Hyperlipidemia (Chronic) Polyneuropathy (Chronic) GERD (gastroesophageal reflux disease) (Chronic) Constipation (Chronic) You will use the following diet at home:: No restrictions, Regular Your food should be the consistency of: Regular Your liquids should be the consistency of: Regular/Thin Discharge Activity: Return to Normal Activity, May Shower, Use Walker Weight Bearing Status: Weight bearing as tolerated Call your doctor if you observe: Fever of 101 or Higher, Inability to urinate, Inability to have a bowel movement, Shortness of breath, Chest pain, Uncontrolled pain Allergies/Adverse Reactions: Allergies celecoxib [From Celebrex] Allergy (Verified 08/29/17 11:14) unknown lisinopril Allergy (Verified 08/29/17 11:14) unknown Medications to take at Discharge Nebivolol HCl [Bystolic (Beta Selena)] 5 mg PO QHS 08/29/17 Rosuvastatin Calcium [Crestor] 10 mg PO QHS 08/29/17 Acetaminophen [Tylenol] 1,000 mg PO Q8 tablet 09/25/17 Albuterol IH (ProAir) [Proair Hfa] 1 - 2 puff INHALATION Q6H PRN PRN #1 inhaler 09/25/17 Aspirin [Aspirin, Baby] 81 mg PO 0800,1700 #12 tab.chew 09/25/17 Empagliflozin [Jardiance] 10 mg PO QHS #30 tab 09/25/17 Famotidine [Pepcid] 20 mg PO BID #60 tab 09/25/17 Metformin HCl [Glucophage] 1,000 mg PO QHS #30 tab 09/25/17 Polyethylene Glycol 3350 [Miralax] 17 gm PO DAILY #30 packet 09/25/17 traMADol [Ultram] 50 mg PO Q6H PRN PRN #30 tablet 09/25/17 The following prescriptions were given: Albuterol IH (ProAir) [Proair Hfa] 1 - 2 puff INHALATION Q6H PRN PRN #1 inhaler PRN Reason: Sob &/Or Wheezing traMADol [Ultram] 50 mg PO Q6H PRN PRN #30 tablet PRN Reason: Moderate Pain (4-5/10) Aspirin [Aspirin, Baby] 81 mg PO 0800,1700 #12 tab.chew Empagliflozin [Jardiance] 10 mg PO QHS #30 tab Metformin HCl [Glucophage] 1,000 mg PO QHS #30 tab Polyethylene Glycol 3350 [Miralax] 17 gm PO DAILY #30 packet Famotidine [Pepcid] 20 mg PO BID #60 tab Primary Care Physician: Dwaine Mo Chi, MD [Primary Care Provider] - Please follow up with your Primary Care Physician in: 1 week. Please Follow Up With: Dr Alexi Mark When: 2 weeks. Proposed Discharge Date: 09/28/17
--- NOTE | 2017-09-25 20:36 | PCM.DC.SUM ---
Discharge Date and Diagnosis Date of Admission: 09/06/17 Date of Discharge: 09/28/17 - Secondary Discharge Diagnosis Chronic Problems (Last Updated 08/13/17 @ 13:21 by Tory Lugo) Osteoarthritis of right knee (Chronic) Diabetes mellitus (Chronic) Hypertension (Chronic) Hyperlipidemia (Chronic) Polyneuropathy (Chronic) GERD (gastroesophageal reflux disease) (Chronic) Constipation (Chronic) Hospital Course and Treatment Imaging Results: 09/12/17 19:26 Diet: Cardiac: Calorie-Controlled Is pt able to select menu?: Yes How many daily calories?: 1800 calorie Clinical Impression(s) from Imaging Studies KUB X-Ray 09/07/17 16:48 IMPRESSION: Mild colonic ileus. No evidence of bowel obstruction. at 1718 Reported and signed by: Sharonda Anderson MD Electronically Signed: Sharonda Anderson MD at 16:17 EST Tel , Service support , Chest X-Ray 09/07/17 18:30 IMPRESSION: Mild left basilar atelectasis. at 1908 Reported and signed by: Sharonda Anderson MD Electronically Signed: Sharonda Anderson MD at 18:06 EST Tel , Service support , Labs (Last 48 Hours) 09/23/17 09/24/17 09/24/17 20:53 07:06 10:52 POC Glucose 201 H 233 H 180 H 09/24/17 09/24/17 09/25/17 16:47 20:49 06:26 POC Glucose 152 H 250 H 169 H 09/25/17 09/25/17 11:14 16:44 POC Glucose 161 H 165 H Operations: None Procedures: None Summary of Care Provided: The patient is a 67 year old Female with below past medical history hospitalized for right total knee replacement 09/04/[address] Alexi Mark, admitted to TCU for rehabilitation, strengthening, prior to discharge home alone. [] Discharge home alone. Discharge Diet: No Restrictions Discharge Activity: Return to Normal Activity, May Shower, Use Walker Weight Bearing Status: Weight bearing as tolerated Call your doctor if you observe: Fever of 101 or Higher, Inability to urinate, Inability to have a bowel movement, Shortness of breath, Chest pain, Uncontrolled pain Home Medications: Medications to take at Discharge Nebivolol HCl [Bystolic (Beta Selena)] 5 mg PO QHS 08/29/17 Rosuvastatin Calcium [Crestor] 10 mg PO QHS 08/29/17 Acetaminophen [Tylenol] 1,000 mg PO Q8 tablet 09/25/17 Albuterol IH (ProAir) [Proair Hfa] 1 - 2 puff INHALATION Q6H PRN PRN #1 inhaler 09/25/17 Aspirin [Aspirin, Baby] 81 mg PO 0800,1700 #12 tab.chew 09/25/17 Empagliflozin [Jardiance] 10 mg PO QHS #30 tab 09/25/17 Famotidine [Pepcid] 20 mg PO BID #60 tab 09/25/17 Metformin HCl [Glucophage] 1,000 mg PO QHS #30 tab 09/25/17 Polyethylene Glycol 3350 [Miralax] 17 gm PO DAILY #30 packet 09/25/17 traMADol [Ultram] 50 mg PO Q6H PRN PRN #30 tablet 09/25/17 Following Prescrptions Were Given to Patient: Albuterol IH (ProAir) [Proair Hfa] 1 - 2 puff INHALATION Q6H PRN PRN #1 inhaler PRN Reason: Sob &/Or Wheezing traMADol [Ultram] 50 mg PO Q6H PRN PRN #30 tablet PRN Reason: Moderate Pain (4-5/10) Aspirin [Aspirin, Baby] 81 mg PO 0800,1700 #12 tab.chew Empagliflozin [Jardiance] 10 mg PO QHS #30 tab Metformin HCl [Glucophage] 1,000 mg PO QHS #30 tab Polyethylene Glycol 3350 [Miralax] 17 gm PO DAILY #30 packet Famotidine [Pepcid] 20 mg PO BID #60 tab Primary Care Physician: Dwaine Mo Chi, MD [Primary Care Provider] - Please follow up with your Primary Care Physician in: 1 week. Please Follow Up With: Dr Alexi Mark When: 2 weeks. Disposition: Home Minutes spent on discharge:: 30 Patient Condition:: Good Medical Necessity - Tobacco Use Smoking Status: Never smoker Tobacco Use: Non-smoker Meaningful Use Info Meaningful Use Diagnoses (Choose all that apply): None applicable
[2017-09-25] MEDS: Atorvastatin Calcium 40 MG Tablet PO (21:06)
[2017-09-25] MEDS: Empagliflozin 10 MG Tablet PO (21:06)
[2017-09-25] MEDS: metFORMIN HCl 1,000 MG Tablet 1000 MG PO (21:06)
[2017-09-25 21:21] LABS: Bedside Glucose 211 mg/dL (70-110)
[2017-09-26] MEDS: Famotidine 20 MG Tablet PO ×2 (06:32→17:26)
[2017-09-26] MEDS: Acetaminophen 500 MG Tablet 1000 MG PO ×3 (06:34→21:24)
[2017-09-26 06:51] LABS: Bedside Glucose 164 mg/dL (70-110)
[2017-09-26] MEDS: Aspirin 81 MG TAB.CHEW PO ×2 (08:45→17:26)
[2017-09-26 11:51] LABS: Bedside Glucose 165 mg/dL (70-110)
--- NOTE | 2017-09-26 14:59 | CASEMGMT ---
Brief interview for mental status (BIMS) and resident mood interview (PHQ-9) completed on this day. BIMS score 15. PHQ-9 score 10/26
--- NOTE | 2017-09-26 15:10 | CASEMGMT ---
Social Work Spoke with resident in room. This social sciences chair collaborating on discharge plan with resident. Resident reporting to need a walker at time of discharge. Resident does not have a preference of [facility] to be utilized. This social sciences chair communicating that physical therapy is recommending for resident to to have outpatient physical therapy at time of discharge. Resident is agreeable to recommendation and requesting for outpatient physical therapy to be set up through [facility]. Resident reporting that family is aware of resident discharge and is declining for this social sciences chair to contact family about discharge. Resident family planning to provide transportation home for resident at time of discharge. Support given. Telephone call to Jacquelin Alexander. This social sciences chair making referral for outpatient physical therapy. Appointment set up for 10/01/17 @ 2:00pm. Will fax order when obtained. Will continue to follow to set up walker. Proposed discharge date: 09/28/17 PLAN: Discharge home alone with outpatient physical therapy. Nehal ORR, ROCK DRILL OPERATOR
[2017-09-26 15:50] VITALS: BP 136/75; PULSE 81; RESP 20; TEMP 36.4; O2SAT 96
[2017-09-26 17:06] LABS: Bedside Glucose 138 mg/dL (70-110)
[2017-09-26 20:51] LABS: Bedside Glucose 197 mg/dL (70-110)
[2017-09-26] MEDS: Empagliflozin 10 MG Tablet PO (21:24)
[2017-09-26] MEDS: metFORMIN HCl 1,000 MG Tablet 1000 MG PO (21:24)
[2017-09-26] MEDS: Atorvastatin Calcium 40 MG Tablet PO (21:25)
[2017-09-27] MEDS: Famotidine 20 MG Tablet PO ×2 (06:30→17:11)
[2017-09-27] MEDS: Acetaminophen 500 MG Tablet 1000 MG PO ×3 (06:35→21:37)
[2017-09-27 07:00] LABS: Bedside Glucose 140 mg/dL (70-110)
[2017-09-27] MEDS: Aspirin 81 MG TAB.CHEW PO ×2 (08:35→17:11)
[2017-09-27 10:00] VITALS: PULSE 88; RESP 18; O2SAT 97
[2017-09-27 11:15] LABS: Bedside Glucose 163 mg/dL (70-110)
--- NOTE | 2017-09-27 11:50 | CASEMGMT ---
Social Work Order faxed to [facility] for physical therapy. Spoke with resident in room, resident insurance is not in network with [facility] to now have referral for walker. Resident is agreeable to plan. Referral faxed to [facility], [facility] is in network with resident insurance per Nilesh. Clinical information and order faxed. Resident aware that walker will need picked up from [facility]. Proposed discharge date: 09/28/17 PLAN: Discharge home alone with outpatient physical therapy. Nehal ORR, CLOTH PRINTING UTILITY WORKER
[2017-09-27 15:55] VITALS: BP 136/72; PULSE 63; RESP 17; TEMP 36.7; O2SAT 98
[2017-09-27 17:01] LABS: Bedside Glucose 160 mg/dL (70-110)
--- NOTE | 2017-09-27 18:43 | NURSING ---
Pt discharging to sleep lab, this nurse did teaching on insulin and how to inject. This nurse demonstrated to Pt how to turn the dose, attach the needle, prep the skin and give the injection. This nurse observed as Pt followed this nurse instruction and self administered his ordered levimer. Pt voiced and demonstrated the ability to give his own insulin. This nurse wrote an instruction sheet for Pt to keep as reference. Suzy GREGG aware.
[2017-09-27 21:01] LABS: Bedside Glucose 232 mg/dL (70-110)
[2017-09-27] MEDS: Atorvastatin Calcium 40 MG Tablet PO (21:34)
[2017-09-27] MEDS: metFORMIN HCl 1,000 MG Tablet 1000 MG PO (21:34)
[2017-09-27] MEDS: Empagliflozin 10 MG Tablet PO (21:34)
[2017-09-28] MEDS: Senna/Docusate Sodium 1 Tablet 2 TABLET PO (06:00)
[2017-09-28] MEDS: Famotidine 20 MG Tablet PO (06:00)
[2017-09-28 06:51] LABS: Bedside Glucose 208 mg/dL (70-110)
[2017-09-28 07:06] LABS: Absolute Lymphocyte Count 2.54 X10^3/ul (0.83-4.51); Absolute Neutrophil Count 5.2 X10^3/uL (2.0-7.7); Basophil# 0.02 X10^3/uL; Basophil% 0.2 % (0-1); Eosinophil# 0.12 X10^3/uL; Eosinophils% 1.4 % (0-5); Hematocrit 39.7 % (37-47); Hemoglobin 12.4 g/dl (12.0-15.0); Lymphocyte # 2.54 X10^3/ul (4.0); Lymphocyte % 30.4 % (19-41); Mean Corp Hgb Conc 31.2 g/gl (32-36); Mean Corpuscular Hgb 24.9 pg (27.0-32.0); Mean Corpuscular Volume 79.7 fL (81-99); Mean Platelet Vol. 10.1 fl (6.2-12.0); Monocyte# 0.49 X10^3/uL; Monocyte% 5.9 % (0-10); Neutrophil # 5.17 X10^3/uL (2.7-7.7); Platelet Count 356 K/mm3 (150-450); RBC Distribution Width CV 16.4 % (11.6-14.6); Red Blood Count 4.98 M/mm3 (4.2-5.4); White Blood Count 8.4 K/mm3 (4.4-11.0)
[2017-09-28 07:10] LABS: POSITIVE COUNT NO; POSITIVE DIFFERENTIAL NO; POSITIVE MORPHOLOGY NO
[2017-09-28 07:34] LABS: Anion Gap 9 (5-15); BUN 6 mg/dL (7-18); Chloride 107 mmol/L (98-107); EST Glomerular Filtration Rate 58 mL/min (>60); Est Glom Filt Rate - Afr Amer 71 mL/min (>60); Estimated Creatinine Clearance 45.85 ml/min; Glucose 206 mg/dL (74-106); Potassium 4.3 mmol/L (3.5-5.1); Sodium Level 143 mmol/L (136-145)
[2017-09-28] MEDS: Aspirin 81 MG TAB.CHEW PO (08:00)
--- NOTE | 2017-09-28 08:22 | NURSING ---
Dr Mo reviewed labs NNO.
[2017-09-28 08:35] VITALS: PULSE 80; RESP 18; O2SAT 95
[2017-09-28 11:01] LABS: Bedside Glucose 210 mg/dL (70-110)
[2017-09-28 11:44] VITALS: BP 152/83; PULSE 85; RESP 18; TEMP 36.1; O2SAT 97
[2017-09-28] MEDS: Acetaminophen 500 MG Tablet 1000 MG PO (12:54)
--- NOTE | 2017-09-28 13:11 | NURSING ---
PT LEFT FOR HOME BY WHEEL CHAIR, PUSHED BY AID.
--- NOTE | 2017-09-28 14:20 | CASEMGMT ---
Insurance Notified insurance of resident discharge on 09/28/17 to home alone with outpatient physical therapy. Auth#[id number] Nehal ORR, SENIOR ETL DEVELOPER
--- NOTE | 2017-10-03 15:33 | MDS.RN ---
Information for the mds was obtained from review of the clinical record, interview of resident, staff, and direct observation of resident's care.
== END 2017-09-28 13:10 | disposition home or self-care (01) | DRG 561 ==
PROVIDERS: Admitting Provider Family Medicine Geriatric Medicine; Family Provider Family Medicine Geriatric Medicine; PCP Family Medicine Geriatric Medicine; Visit Provider Family Medicine Geriatric Medicine
DX: Z47.1 Aftercare following joint replacement surgery (principal); E11.42 Type 2 diabetes mellitus with diabetic polyneuropathy; I10 Essential (primary) hypertension; Z96.651 Presence of right artificial knee joint; E78.5 Hyperlipidemia, unspecified; K21.9 Gastro-esophageal reflux disease without esophagitis; K59.09 Other constipation; Z79.84 Long term (current) use of oral hypoglycemic drugs; Z79.899 Other long term (current) drug therapy; Z79.82 Long term (current) use of aspirin
CPT/HCPCS: 36415; 71045; 74018; 80048; 81001; 82962; 83880; 85025; 97110; 97116; 97162; 97165; 97530; 97533; 97535; 97802

== ENCOUNTER → 2017-10-02 15:38 | Outpatient (CLI) | payer MEDICARE, SELFPAY ==
[2017-10-02 17:44] LABS: Absolute Lymphocyte Count 2.71 X10^3/ul (0.83-4.51); Absolute Neutrophil Count 4.8 X10^3/uL (2.0-7.7); Basophil# 0.02 X10^3/uL; Basophil% 0.2 % (0-1); Eosinophil# 0.16 X10^3/uL; Eosinophils% 1.9 % (0-5); Hematocrit 40.7 % (37-47); Hemoglobin 12.8 g/dl (12.0-15.0); Lymphocyte # 2.71 X10^3/ul (4.0); Lymphocyte % 32.3 % (19-41); Mean Corp Hgb Conc 31.4 g/gl (32-36); Mean Corpuscular Hgb 25.1 pg (27.0-32.0); Mean Platelet Vol. 10.8 fl (6.2-12.0); Monocyte% 8.3 % (0-10); Neutrophil # 4.79 X10^3/uL (2.7-7.7); Neutrophil % 57.2 % (47-70); Platelet Count 277 K/mm3 (150-450); RBC Distribution Width CV 16.6 % (11.6-14.6); RBC Distribution Width SD 48.5 fl (35.1-43.9); Red Blood Count 5.09 M/mm3 (4.2-5.4); White Blood Count 8.4 K/mm3 (4.4-11.0)
[2017-10-02 17:48] LABS: POSITIVE COUNT NO; POSITIVE DIFFERENTIAL NO; POSITIVE MORPHOLOGY NO
[2017-10-02 18:14] LABS: ALB/GLOB Ratio 0.7 RATIO (0.9-2.4); AST(SGOT) 16 U/L (15-37); Alanine Aminotransfer ALT/SGPT 17 U/L (13-56); Albumin, Serum 3.4 g/dL (3.2-5.0); Alkaline Phosphatase 114 U/L (45-117); Anion Gap 8 (5-15); BUN 6 mg/dL (7-18); BUN/Creat Ratio 6.7 RATIO (10-20); Calcium,Total 9.4 mg/dL (8.5-10.1); Chloride 106 mmol/L (98-107); EST Glomerular Filtration Rate 66 mL/min (>60); Est Glom Filt Rate - Afr Amer 80 mL/min (>60); Globulin 4.7 g/dL (2.2-4.2); Glucose 163 mg/dL (74-106); Potassium 4.3 mmol/L (3.5-5.1); Protein, Total 8.1 g/dL (6.4-8.2); Sodium Level 142 mmol/L (136-145); Thyroid Stim Hormone (TSH) 0.84 uIU/mL (0.358-3.74)
== END ==
LOC: LAB 08-28 09:24 → POLAB3 15:39
PROVIDERS: Family Provider Family Medicine Geriatric Medicine; PCP Family Medicine Geriatric Medicine; Visit Provider Family Medicine Geriatric Medicine
DX: E11.9 Type 2 diabetes mellitus without complications (principal); E55.9 Vitamin D deficiency, unspecified; I10 Essential (primary) hypertension
CPT/HCPCS: 36415; 80053; 82306; 84443; 85025

== ENCOUNTER → 2017-10-17 13:09 | Outpatient (CLI) | payer MEDICARE, SELFPAY ==
--- NOTE | 2017-10-17 13:11 | RAD_ITS ---
STUDY: X-RAY - RIGHT KNEE REASON FOR EXAM: One month postop. TECHNIQUE: 4 view(s) of the knee. COMPARISON: Radiographs 09/04/2017. FINDINGS: There is a right total knee arthroplasty without evidence of complication. There is a small calcification in the anterior soft tissues. RAD/Knee 4 or More Views IMPRESSION: Uncomplicated right total knee arthroplasty. Electronically Signed: Peter Velez MD at 13:46 EDT Tel , Service support ,
== END ==
LOC: HPRAD 13:11
PROVIDERS: Family Provider Family Medicine Geriatric Medicine; PCP Family Medicine Geriatric Medicine; Visit Provider Orthopaedic Surgery
DX: M25.561 Pain in right knee (principal); Z96.651 Presence of right artificial knee joint
CPT/HCPCS: 73564

== ENCOUNTER → 2018-01-14 16:39 | Outpatient (CLI) | payer MEDICARE, SELFPAY ==
[2018-01-14 17:44] LABS: Absolute Lymphocyte Count 3.05 X10^3/ul (0.83-4.51); Absolute Neutrophil Count 7.5 X10^3/uL (2.0-7.7); Basophil# 0.03 X10^3/uL; Basophil% 0.3 % (0-1); Eosinophil# 0.11 X10^3/uL; Hematocrit 42.8 % (37-47); Hemoglobin 14.6 g/dl (12.0-15.0); Lymphocyte # 3.05 X10^3/ul (4.0); Lymphocyte % 26.9 % (19-41); Mean Corp Hgb Conc 34.1 g/gl (32-36); Mean Corpuscular Hgb 26.5 pg (27.0-32.0); Mean Corpuscular Volume 77.8 fL (81-99); Mean Platelet Vol. 11.9 fl (6.2-12.0); Monocyte# 0.63 X10^3/uL; Monocyte% 5.6 % (0-10); Platelet Count 268 K/mm3 (150-450); RBC Distribution Width CV 15.6 % (11.6-14.6); RBC Distribution Width SD 44.5 fl (35.1-43.9); White Blood Count 11.3 K/mm3 (4.4-11.0)
[2018-01-14 17:45] LABS: POSITIVE COUNT NO; POSITIVE DIFFERENTIAL NO; POSITIVE MORPHOLOGY NO
[2018-01-14 18:12] LABS: ALB/GLOB Ratio 0.8 RATIO (0.9-2.4); AST(SGOT) 13 U/L (15-37); Alanine Aminotransfer ALT/SGPT 21 U/L (13-56); Albumin, Serum 3.5 g/dL (3.2-5.0); Alkaline Phosphatase 123 U/L (45-117); Anion Gap 9 (5-15); BUN 6 mg/dL (7-18); BUN/Creat Ratio 4.7 RATIO (10-20); Chloride 102 mmol/L (98-107); Cholesterol 117 mg/dL (200); Creatinine, Serum 1.28 mg/dL (0.55-1.02); EST Glomerular Filtration Rate 44 mL/min (>60); Est Glom Filt Rate - Afr Amer 53 mL/min (>60); Globulin 4.4 g/dL (2.2-4.2); Glucose 402 mg/dL (74-106); High Density Lipoprotein 31 mg/dL; Potassium 4.1 mmol/L (3.5-5.1); Protein, Total 7.9 g/dL (6.4-8.2); Sodium Level 138 mmol/L (136-145); Thyroid Stim Hormone (TSH) 1.05 uIU/mL (0.358-3.74); Triglycerides 327 mg/dL; Very Low Density Lipoprotein 65 mg/dL (5-40)
== END ==
PROVIDERS: Family Provider Family Medicine Geriatric Medicine; PCP Family Medicine Geriatric Medicine; Visit Provider Family Medicine Geriatric Medicine
DX: E11.9 Type 2 diabetes mellitus without complications (principal); E55.9 Vitamin D deficiency, unspecified; E78.4 Other hyperlipidemia; I10 Essential (primary) hypertension
CPT/HCPCS: 36415; 80053; 80061; 82306; 84443; 85025

== ENCOUNTER → 2018-07-08 13:55 | Outpatient (CLI) | payer MEDICARE, SELFPAY ==
[2018-07-08 18:13] LABS: Vitamin D,25 Hydroxy 26.6 ng/mL (29.95-100.01)
[2018-07-08 18:33] LABS: ALB/GLOB Ratio 0.8 RATIO (0.9-2.4); AST(SGOT) 12 U/L (15-37); Alanine Aminotransfer ALT/SGPT 16 U/L (13-56); Albumin, Serum 3.3 g/dL (3.2-5.0); Alkaline Phosphatase 109 U/L (45-117); Anion Gap 7 (5-15); BUN 6 mg/dL (7-18); BUN/Creat Ratio 6.8 RATIO (10-20); Chloride 110 mmol/L (98-107); Cholesterol 132 mg/dL (200); Creatinine, Serum 0.88 mg/dL (0.55-1.02); EST Glomerular Filtration Rate 67 mL/min (>60); Est Glom Filt Rate - Afr Amer 81 mL/min (>60); Globulin 4.3 g/dL (2.2-4.2); Glucose 109 mg/dL (74-106); High Density Lipoprotein 42 mg/dL; Potassium 4.3 mmol/L (3.5-5.1); Protein, Total 7.6 g/dL (6.4-8.2); Sodium Level 145 mmol/L (136-145); Thyroid Stim Hormone (TSH) 1.21 uIU/mL (0.358-3.74); Triglycerides 80 mg/dL; Very Low Density Lipoprotein 16 mg/dL (5-40)
[2018-07-08 18:37] LABS: Absolute Lymphocyte Count 2.58 X10^3/ul (0.83-4.51); Absolute Neutrophil Count 5.9 X10^3/uL (2.0-7.7); Basophil# 0.01 X10^3/uL; Basophil% 0.1 % (0-1); Eosinophil# 0.12 X10^3/uL; Eosinophils% 1.3 % (0-5); Hematocrit 43.6 % (37-47); Hemoglobin 13.9 g/dl (12.0-15.0); Lymphocyte # 2.58 X10^3/ul (4.0); Lymphocyte % 28.1 % (19-41); Mean Corp Hgb Conc 31.9 g/gl (32-36); Mean Corpuscular Hgb 26.2 pg (27.0-32.0); Mean Corpuscular Volume 82.1 fL (81-99); Mean Platelet Vol. 10.6 fl (6.2-12.0); Monocyte# 0.51 X10^3/uL; Monocyte% 5.6 % (0-10); Neutrophil # 5.94 X10^3/uL (2.7-7.7); Neutrophil % 64.8 % (47-70); Platelet Count 285 K/mm3 (150-450); RBC Distribution Width CV 15.2 % (11.6-14.6); RBC Distribution Width SD 45.3 fl (35.1-43.9); Red Blood Count 5.31 M/mm3 (4.2-5.4); White Blood Count 9.2 K/mm3 (4.4-11.0)
[2018-07-08 18:45] LABS: POSITIVE COUNT NO; POSITIVE DIFFERENTIAL NO; POSITIVE MORPHOLOGY NO
== END ==
PROVIDERS: Family Provider Family Medicine Geriatric Medicine; PCP Family Medicine Geriatric Medicine; Visit Provider Family Medicine Geriatric Medicine
DX: E11.9 Type 2 diabetes mellitus without complications (principal); E55.9 Vitamin D deficiency, unspecified; E78.49 Other hyperlipidemia; I10 Essential (primary) hypertension
CPT/HCPCS: 36415; 80053; 80061; 82306; 84443; 85025

== ENCOUNTER → 2018-12-10 15:22 | Outpatient (CLI) | payer MEDICARE, SELFPAY ==
[2018-09-09 13:26] VITALS: BMI 43.7
[2018-12-10 15:49] LABS: Absolute Lymphocyte Count 2.94 X10^3/ul (0.83-4.51); Absolute Neutrophil Count 7.2 X10^3/uL (2.0-7.7); Basophil# 0.03 X10^3/uL; Basophil% 0.3 % (0-1); Eosinophil# 0.17 X10^3/uL; Eosinophils% 1.6 % (0-5); Hematocrit 42.9 % (37-47); Lymphocyte # 2.94 X10^3/ul (4.0); Lymphocyte % 27.1 % (19-41); Mean Corp Hgb Conc 32.6 g/gl (32-36); Mean Corpuscular Hgb 25.5 pg (27.0-32.0); Mean Corpuscular Volume 78.3 fL (81-99); Mean Platelet Vol. 10.1 fl (6.2-12.0); Monocyte# 0.51 X10^3/uL; Monocyte% 4.7 % (0-10); Neutrophil # 7.17 X10^3/uL (2.7-7.7); Neutrophil % 66.1 % (47-70); Platelet Count 252 K/mm3 (150-450); RBC Distribution Width SD 42.5 fl (35.1-43.9); Red Blood Count 5.48 M/mm3 (4.2-5.4); White Blood Count 10.8 K/mm3 (4.4-11.0)
[2018-12-10 15:57] LABS: POSITIVE COUNT NO; POSITIVE DIFFERENTIAL NO; POSITIVE MORPHOLOGY NO
[2018-12-10 16:27] LABS: ALB/GLOB Ratio 0.8 RATIO (0.9-2.4); AST(SGOT) 11 U/L (15-37); Alanine Aminotransfer ALT/SGPT 13 U/L (13-56); Albumin, Serum 3.3 g/dL (3.2-5.0); Alkaline Phosphatase 97 U/L (45-117); Anion Gap 1 (5-15); BUN 3 mg/dL (7-18); BUN/Creat Ratio 3.3 RATIO (10-20); Chloride 108 mmol/L (98-107); Creatinine, Serum 0.91 mg/dL (0.55-1.02); EST Glomerular Filtration Rate 65 mL/min (>60); Est Glom Filt Rate - Afr Amer 79 mL/min (>60); Globulin 4.3 g/dL (2.2-4.2); Glucose 156 mg/dL (74-106); Protein, Total 7.6 g/dL (6.4-8.2); Sodium Level 140 mmol/L (136-145); Thyroid Stim Hormone (TSH) 1.07 uIU/mL (0.358-3.74)
== END ==
PROVIDERS: Family Provider Family Medicine Geriatric Medicine; PCP Family Medicine Geriatric Medicine; Visit Provider Family Medicine Geriatric Medicine
DX: G93.9 Disorder of brain, unspecified (principal); I10 Essential (primary) hypertension
CPT/HCPCS: 36415; 80053; 84443; 85025

== ENCOUNTER → 2018-12-13 09:11 | Outpatient (CLI) | payer MEDICARE, SELFPAY ==
[2018-09-09 13:26] VITALS: BMI 43.7
--- NOTE | 2018-12-13 09:38 | MRI_ITS ---
STUDY: MRI BRAIN WITH AND WITHOUT CONTRAST REASON FOR EXAM: Female, 68 years old. 6th nerve palsy TECHNIQUE: Standardized multiplanar fat and water weighted pulse sequences were obtained. 23 IV Dotarem was administered for the contrast portion of the examination. COMPARISON: 01/28/2014 FINDINGS: There is mild cerebral atrophy with widening of the extra-axial spaces and ventricular dilatation. There are a limited number of small white matter hyperintensities, distributed throughout the deep white matter tracts of the cerebral hemispheres, consistent with mild chronic white matter ischemic changes. There is no evidence for recent intracranial ischemia or other cause of cytotoxic edema on diffusion weighted imaging (DWI). Normal T2* images of the brain without demonstrated susceptibility artifact. There is no demonstrated hemosiderin stain. Normal bilateral basal ganglia. Normal thalami. There is no extra-axial fluid accumulation. Normal flow voids within the major intracranial circulation suggesting patency by spin echo criteria. Normal venous enhancement. There is no enhancing intra-axial or extra-axial abnormality. Normal sella turcica, pituitary gland, infundibular stalk, optic chiasm and hypothalamus. Normal tectal plate and pineal gland. Normal midbrain, isaiah and medulla. Normal cerebellum. Normal basal cisterns. Normal bilateral temporal bones. Normal bilateral internal auditory canals. There are bilateral ocular lens implants with otherwise normal intraorbital contents. Normal visualized paranasal sinuses. Normal calvarium and skull base. Normal visualized soft tissue structures. Normal visualized upper cervical spine. MRI/Brain W/WO Contrast IMPRESSION: Involutional changes of the brain, as described above. Electronically Signed: Bairon Chapman MD at 14:48 EDT Tel , Service support ,
== END ==
PROVIDERS: Family Provider Family Medicine Geriatric Medicine; PCP Family Medicine Geriatric Medicine
DX: H49.21 Sixth [abducent] nerve palsy, right eye (principal)
CPT/HCPCS: 70553; A9575

== ENCOUNTER → 2019-01-10 10:19 | Outpatient (CLI) | payer MEDICARE, SELFPAY ==
[2018-09-09 13:26] VITALS: BMI 43.7
[2019-01-10 13:23] LABS: Anion Gap 4 (5-15); BUN 5 mg/dL (7-18); Calcium,Total 9.4 mg/dL (8.5-10.1); Chloride 110 mmol/L (98-107); Creatinine, Serum 0.83 mg/dL (0.55-1.02); EST Glomerular Filtration Rate 72 mL/min (>60); Est Glom Filt Rate - Afr Amer 87 mL/min (>60); Glucose 102 mg/dL (74-106); Potassium 4.1 mmol/L (3.5-5.1); Sodium Level 145 mmol/L (136-145)
== END ==
PROVIDERS: Family Provider Family Medicine Geriatric Medicine; PCP Family Medicine Geriatric Medicine; Visit Provider Family Medicine Geriatric Medicine
DX: E11.9 Type 2 diabetes mellitus without complications (principal)
CPT/HCPCS: 36415; 80048

== ENCOUNTER → 2019-04-04 10:52 | Outpatient (CLI) | payer MEDICARE, SELFPAY ==
[2018-09-09 13:26] VITALS: BMI 43.7
[2019-04-04 12:25] LABS: Absolute Lymphocyte Count 2.04 X10^3/uL (0.83-4.51); Absolute Neutrophil Count 5.7 X10^3/uL (2.0-7.7); Basophil# 0.04 X10^3/uL; Basophil% 0.5 % (0-1); Eosinophil# 0.14 X10^3/uL; Eosinophils% 1.7 % (0-5); Hematocrit 40.1 % (37-47); Hemoglobin 12.8 g/dL (12.0-15.0); Lymphocyte # 2.04 X10^3/ul (4.0); Lymphocyte % 24.3 % (19-41); Mean Corp Hgb Conc 31.9 g/dL (32-36); Mean Corpuscular Hgb 25.9 pg (27.0-32.0); Mean Corpuscular Volume 81.2 fL (81-99); Mean Platelet Vol. 10.3 fl (6.2-12.0); Monocyte# 0.49 X10^3/uL; Monocyte% 5.8 % (0-10); NRBC Flagged by Analyzer 0 % (0-5); Neutrophil # 5.67 X10^3/uL (2.7-7.7); Neutrophil % 67.3 % (47-70); Platelet Count 288 K/mm3 (150-450); RBC Distribution Width CV 15.6 % (11.6-14.6); RBC Distribution Width SD 45.9 fl (35.1-43.9); Red Blood Count 4.94 M/mm3 (4.2-5.4); White Blood Count 8.4 K/mm3 (4.4-11.0)
[2019-04-04 12:42] LABS: Vitamin D,25 Hydroxy 30.9 ng/mL (29.95-100.01)
[2019-04-04 12:54] LABS: ALB/GLOB Ratio 0.8 RATIO (0.9-2.4); AST(SGOT) 18 U/L (15-37); Alanine Aminotransfer ALT/SGPT 21 U/L (13-56); Albumin, Serum 3.4 g/dL (3.2-5.0); Alkaline Phosphatase 77 U/L (45-117); Anion Gap 6 (5-15); BUN 9 mg/dL (7-18); Calcium,Total 8.8 mg/dL (8.5-10.1); Chloride 110 mmol/L (98-107); Cholesterol 122 mg/dL (200); EST Glomerular Filtration Rate 66 mL/min (>60); Est Glom Filt Rate - Afr Amer 80 mL/min (>60); Globulin 4.1 g/dL (2.2-4.2); Glucose 93 mg/dL (74-106); High Density Lipoprotein 45 mg/dL; Potassium 3.9 mmol/L (3.5-5.1); Protein, Total 7.5 g/dL (6.4-8.2); Sodium Level 146 mmol/L (136-145); Triglycerides 69 mg/dL; Very Low Density Lipoprotein 14 mg/dL (5-40)
== END ==
PROVIDERS: Family Provider Family Medicine Geriatric Medicine; PCP Family Medicine Geriatric Medicine; Visit Provider Family Medicine Geriatric Medicine
DX: E11.9 Type 2 diabetes mellitus without complications (principal); I10 Essential (primary) hypertension; E78.5 Hyperlipidemia, unspecified; E55.9 Vitamin D deficiency, unspecified
CPT/HCPCS: 36415; 80053; 80061; 82306; 84443; 85025

== ENCOUNTER 2019-04-16 13:22 | Outpatient (RCR) | payer MEDICARE, SELFPAY ==
[2018-09-09 13:26] VITALS: BMI 43.7
--- NOTE | 2019-04-16 15:37 | HP.PTEVAL_ITS ---
Patient's Visit Information KONRAD LOCKWOOD is a 68 year old F referred to Physical Therapy by Dwaine Mo MD with a diagnosis of Unsteady gait. Date of Evaluation: 04/16/19 Physical Therapist: Todd Bass PT, ATC - Visit Plan Frequency: 1x/Week Duration: 1 Week Plan: Instruct and issue HEP fpr B LE strengthening, balance, and core stab ex's - Subjective Findings: Pt had a fall by coming up a step on her stairs at home. Pt. had no injury with the fall. Pt had previous TKA on R knee. Pt gets tired easily when walking w/ cane. [facility] caused her fatigue. Pt started using cane in August 2017 after R knee surgery. Pt uses a scooter when ambualtiing in the community. Pt uses cane to move around in her home. Pt goes up/down stairs one foot at a time. Pt stated she has trouble using the stairs in home. Pt has two sets of steps at home. Pt has railings on R side of stairs when going down. Pt has no pain on this date. Pt states she usually goes to bed with general pain and wakes up with general pain. Pt has no issue getting in/out of car. Pt states she is able to get in/out of bathtub easily. Pt reports she can feel her feet, but has constant pain in them. Gets dizzy when she lies down. - Objective Neuro: B LE sensation is WNL to light touch. B patellar reflex= 2/3. MMT: R LE 4/5 throughout. L LE 5/5 throughout. ROM: B LE's are WFL. TU.16 seconds - Goals Goal 1:: I with HEP Goal Time Frame: 1 Week - Rehabilitation Potential Physical Therapy Diagnosis: Pt has unsteady gait secondary to LE weakness and debilitation Rehabilitation Potential: Good - Anticipated Interventions Patient/Client Instruction: Educate patient on: Condition, Plan of Care For the Purpose of:: To improve self management Therapeutic Exercise to Include: Strength training, Endurance training, Balance training, Gait and locomotor training, Dynamic Lumbar Stabilization For the Purpose of:: To improve muscle performance and motor function, To increase tolerance to activity/condition/position, To improve gait and locomotor functions Thank you for the opportunity to evaluate your patient. For Medicare and Medicare HMO plans, please review the plan of care and approve it. It will need to be FAXED BACK to us at [phone] for Medicare purposes. For Medicare only, by signing this I certify the plan of care. Please let me know if there are questions or concerns regarding this plan of care. Physician Signature: Date:
--- NOTE | 2019-05-23 07:43 | HP.PT.NRP ---
HP - Discharge Summary (1) - Patient Information KONRAD LOCKWOOD was seen in my office for initial evaluation on 04/16/19. The following Plan of Care was established for this patient: Initial Frequency: 1x/Week Initial Duration: 1 Week - Anticipated Interventions Patient/Client Instruction: Educate patient on: Condition, Plan of Care For the Purpose of:: To improve self management Therapeutic Exercise to Include: Strength training, Endurance training, Balance training, Gait and locomotor training, Dynamic Lumbar Stabilization For the Purpose of:: To improve muscle performance and motor function, To increase tolerance to activity/condition/position, To improve gait and locomotor functions This patient was last seen in our office . Pertinent comments regarding their Physical therapy will appear below: Pt was evaluated on 04/16/19 for an unsteady gait pattern. Pt has not returned through todays date and is discontinued at this time. At this point I will be discontinuing this patient from physical therapy. I would be happy to see this patient again in the future if found appropriate by the physician. Thank you! Todd Bass, PT, ATC
== END 2019-04-16 19:00 | disposition home or self-care (01) ==
LOC: PT 13:22
PROVIDERS: Family Provider Family Medicine Geriatric Medicine; PCP Family Medicine Geriatric Medicine; Referring Provider Family Medicine Geriatric Medicine; Visit Provider Family Medicine Geriatric Medicine
DX: R26.9 Unspecified abnormalities of gait and mobility (principal)
CPT/HCPCS: 97161

== ENCOUNTER → 2019-05-07 10:18 | Outpatient (CLI) | payer MEDICARE, SELFPAY ==
[2018-09-09 13:26] VITALS: BMI 43.7
[2019-05-07 12:31] LABS: Erythrocyte Sedimentation Rate 16 mm/hr (0-30)
[2019-05-07 12:48] LABS: Absolute Lymphocyte Count 2.06 X10^3/uL (0.83-4.51); Absolute Neutrophil Count 5.2 X10^3/uL (2.0-7.7); Basophil# 0.02 X10^3/uL; Basophil% 0.3 % (0-1); Eosinophil# 0.08 X10^3/uL; Hematocrit 38.2 % (37-47); Hemoglobin 11.9 g/dL (12.0-15.0); Lymphocyte # 2.06 X10^3/ul (4.0); Lymphocyte % 26.4 % (19-41); Mean Corp Hgb Conc 31.2 g/dL (32-36); Mean Corpuscular Hgb 26.1 pg (27.0-32.0); Mean Corpuscular Volume 83.8 fL (81-99); Mean Platelet Vol. 10.8 fl (6.2-12.0); Monocyte# 0.45 X10^3/uL; Monocyte% 5.8 % (0-10); NRBC Flagged by Analyzer 0 % (0-5); Neutrophil # 5.17 X10^3/uL (2.7-7.7); Neutrophil % 66.2 % (47-70); Platelet Count 256 K/mm3 (150-450); RBC Distribution Width SD 46.1 fl (35.1-43.9); Red Blood Count 4.56 M/mm3 (4.2-5.4); White Blood Count 7.8 K/mm3 (4.4-11.0)
[2019-05-07 12:54] LABS: ALB/GLOB Ratio 0.9 RATIO (0.9-2.4); AST(SGOT) 12 U/L (15-37); Alanine Aminotransfer ALT/SGPT 13 U/L (13-56); Albumin, Serum 3.4 g/dL (3.2-5.0); Alkaline Phosphatase 75 U/L (45-117); Anion Gap 4 (5-15); BUN 8 mg/dL (7-18); BUN/Creat Ratio 8.8 RATIO (10-20); CRP < 2.90 mg/L (0.0-3.0); Calcium,Total 9.1 mg/dL (8.5-10.1); Chloride 110 mmol/L (98-107); Creatinine, Serum 0.91 mg/dL (0.55-1.02); EST Glomerular Filtration Rate 65 mL/min (>60); Est Glom Filt Rate - Afr Amer 79 mL/min (>60); Globulin 3.9 g/dL (2.2-4.2); Glucose 84 mg/dL (74-106); Potassium 3.9 mmol/L (3.5-5.1); Protein, Total 7.3 g/dL (6.4-8.2); Rheumatoid Factor < 10.0 IU/mL (<15); Sodium Level 145 mmol/L (136-145)
[2019-05-07 13:28] LABS: Hepatitis B Surface Antibody Non-Reactive; Hepatitis B Surface Antigen Non-Reactive (Nonreactive); Hepatitis C Antibody Non-Reactive (Nonreactive)
[2019-05-08 14:08] LABS: SJOGREN'S Anti-SS-A test < 0.2 AI (0.0-0.9); SJOGREN'S Anti-SS-B test < 0.2 AI (0.0-0.9)
[2019-05-09 16:31] LABS: ANTINUCLEAR ANTIBODIES DIRECT Negative (Negative)
[2019-05-12 16:55] LABS: CCP IgG Antibodies 7 units (0-19); HLA B27 Negative (.); Hepatitis B Core AB IgM Negative (Negative)
== END ==
PROVIDERS: Family Provider Family Medicine Geriatric Medicine; PCP Family Medicine Geriatric Medicine; Referring Provider Internal Medicine Rheumatology; Visit Provider Internal Medicine Rheumatology
DX: M06.4 Inflammatory polyarthropathy (principal); M79.7 Fibromyalgia; M47.897 Other spondylosis, lumbosacral region
CPT/HCPCS: 36415; 80053; 81374; 85025; 85652; 86038; 86140; 86200; 86235; 86431; 86705; 86706; 86803; 87340

== ENCOUNTER → 2019-06-10 15:46 | Outpatient (CLI) | payer MEDICARE, SELFPAY ==
[2018-09-09 13:26] VITALS: BMI 43.7
--- NOTE | 2019-06-10 15:49 | BI_ITS ---
MAMMOGRAPHY - BILATERAL SCREENING REASON FOR EXAM: Female, 68 years old. Routine annual screening examination. PERTINENT HISTORY: Non-contributory. TECHNIQUE: Digital bilateral breast edward (3D mammographic acquisition) in the CC and MLO projections. 2-D mediolateral oblique (MLO) and craniocaudad (CC) views of both breasts were obtained. CAD: Full Field Digital Mammography with Computer Added Detection was performed. COMPARISON: Comparison is made with prior study dated March 17, 2014 and March 07, 2013. FINDINGS: Breast Composition: The breasts are almost entirely fatty. There are no dominant masses or suspicious calcifications. Stable benign-appearing bilateral axillary No other significant abnormalities are identified. There has been no significant change since the prior study. BI/SCREEN MAMM (CAD) W/EDWARD BILAT IMPRESSION: Stable bilateral screening mammogram. Yearly follow-up mammogram recommended. (A) ASSESSMENT CATEGORY: BIRADS Category 2: Benign. A letter regarding these results will be sent to the patient by the facility within 30 days. Approximately 10% of breast cancers are not detected by mammography. A normal mammogram should not delay biopsy of a clinically suspicious abnormality. [id number] Electronically Signed: Deon Nair, at 9:06 EST , Service support ,
== END ==
PROVIDERS: Family Provider Family Medicine Geriatric Medicine; PCP Family Medicine Geriatric Medicine; Referring Provider Family Medicine Geriatric Medicine; Visit Provider Family Medicine Geriatric Medicine
DX: Z12.31 Encounter for screening mammogram for malignant neoplasm of breast (principal)
CPT/HCPCS: 77063; 77067

== ENCOUNTER → 2019-07-14 10:42 | Outpatient (CLI) | payer MEDICARE, SELFPAY ==
[2018-09-09 13:26] VITALS: BMI 43.7
[2019-07-14 13:09] LABS: Absolute Neutrophil Count 5.6 X10^3/uL (2.0-7.7); Basophil# 0.03 X10^3/uL; Basophil% 0.3 % (0-1); Eosinophil# 0.08 X10^3/uL; Eosinophils% 0.9 % (0-5); Hematocrit 39.3 % (37-47); Lymphocyte % 28.9 % (19-41); Mean Corp Hgb Conc 30.5 g/dL (32-36); Mean Corpuscular Hgb 25.6 pg (27.0-32.0); Mean Corpuscular Volume 83.8 fL (81-99); Mean Platelet Vol. 10.5 fl (6.2-12.0); Monocyte# 0.44 X10^3/uL; Monocyte% 5.1 % (0-10); NRBC Flagged by Analyzer 0 % (0-5); Neutrophil # 5.57 X10^3/uL (2.7-7.7); Neutrophil % 64.6 % (47-70); Platelet Count 258 K/mm3 (150-450); RBC Distribution Width CV 16.1 % (11.6-14.6); RBC Distribution Width SD 48.8 fl (35.1-43.9); Red Blood Count 4.69 M/mm3 (4.2-5.4); White Blood Count 8.6 K/mm3 (4.4-11.0)
[2019-07-14 14:40] LABS: ALB/GLOB Ratio 0.9 RATIO (0.9-2.4); AST(SGOT) 15 U/L (15-37); Alanine Aminotransfer ALT/SGPT 20 U/L (13-56); Albumin, Serum 3.3 g/dL (3.2-5.0); Alkaline Phosphatase 72 U/L (45-117); Anion Gap 1 (5-15); BUN 6 mg/dL (7-18); BUN/Creat Ratio 6.6 RATIO (10-20); Calcium,Total 9.4 mg/dL (8.5-10.1); Chloride 111 mmol/L (98-107); Creatinine, Serum 0.92 mg/dL (0.55-1.02); EST Glomerular Filtration Rate 64 mL/min (>60); Est Glom Filt Rate - Afr Amer 78 mL/min (>60); Globulin 3.8 g/dL (2.2-4.2); Glucose 90 mg/dL (74-106); Potassium 4.5 mmol/L (3.5-5.1); Protein, Total 7.1 g/dL (6.4-8.2); Sodium Level 144 mmol/L (136-145)
== END ==
PROVIDERS: Family Provider Student in an Organized Health Care Education/Training Program; PCP Student in an Organized Health Care Education/Training Program; Referring Provider Internal Medicine Rheumatology; Visit Provider Internal Medicine Rheumatology
DX: M06.4 Inflammatory polyarthropathy (principal); M79.7 Fibromyalgia; M47.897 Other spondylosis, lumbosacral region; K58.2 Mixed irritable bowel syndrome; K21.9 Gastro-esophageal reflux disease without esophagitis; F32.9 Major depressive disorder, single episode, unspecified; I10 Essential (primary) hypertension; E11.9 Type 2 diabetes mellitus without complications; E78.5 Hyperlipidemia, unspecified; G47.33 Obstructive sleep apnea (adult) (pediatric); Z85.038 Personal history of other malignant neoplasm of large intestine; Z79.899 Other long term (current) drug therapy; Z86.73 Personal history of transient ischemic attack (TIA), and cerebral infarction without residual deficits
CPT/HCPCS: 36415; 80053; 85025

== ENCOUNTER → 2020-04-30 12:36 | Outpatient (CLI) | payer MEDICARE, SELFPAY ==
[2018-09-09 13:26] VITALS: BMI 43.7
--- NOTE | 2020-04-30 12:41 | STEWCON_ITS ---
Reason For Study: HTN, PALPITATIONS Stress Results Protocol: Dobutamine Stress With Definity Maximum Predicted HR: 149 bpm Target HR: 127 bpm % Maximum Predicted HR: 85 % DurationHeart Rate Stage (mm:ss) (bpm) BP Dose Comment BASELINE 82 151/84 10 CC DEFINITY FOR ENTIRE TEST STAGE 1 3:40 92 177/7110.00 STAGE 2 3:00 114 178/7820.00 STAGE 3 3:19 127 / 30.00 RECOVERY 96 130/70 Stress Duration: 9:59 mm:ss Maximum Stress HR: 127 bpm Baseline Echocardiogram Findings Stress Echo Wall motion Data Resting WM Intermediate WM Stress WM Interpretation Summary Dobutamine stress echocardiogram. Stress protocol: Resting EKG demonstrates normal sinus rhythm with a rate of 83 bpm normal intervals are noted resting blood pressure is 151/84 mmHg. Dobutamine was infused starting at 10 mcg/kg/min increasing in 3-minute aliquots to 30 mcg/kg/min. The maximum heart rate attained was 133 bpm which was 89% of max impacted heart rate the maximum workload was 1 metabolic equivalent. At rest there were no ST or T wave changes noted to suggest ischemia. The peak blood pressure was 178/78 mmHg. The test was terminated due to attainment of target heart rate. Stress echocardiogram. Stress echocardiographic images were obtained at rest and with peak infusion. The estimated ejection fraction was 60% with left ventricular hypertrophy noted. There was thickening of all roman with improvement in low ventricular systolic function add low-dose and at peak dose peaking at approximately 75%. No wall motion abnormalities were noted. Conclusion: Dobutamine stress echocardiogram with no evidence of ischemia. Preserved ejection fraction at rest and with peak infusion. Ordering Physician: Riley Cabezas Referring Physician: Riley Cabezas Performed By: Lc Donovan RCS
== END ==
PROVIDERS: PCP Student in an Organized Health Care Education/Training Program; Referring Provider Student in an Organized Health Care Education/Training Program; Visit Provider Student in an Organized Health Care Education/Training Program
DX: R06.02 Shortness of breath (principal); R00.2 Palpitations; I10 Essential (primary) hypertension
CPT/HCPCS: 93017; 93350; J7040; Q9957; A4216; C8928

== ENCOUNTER 2025-03-27 10:43 | Day surgery (SDC) | payer MEDICARE, SELFPAY ==
--- NOTE | 2025-03-25 15:37 | PAT.ANESEVAL ---
Pre-Assessment Diagnosis/Proposed Procedure Planned Operative Procedure(s): COLONOSCOPY Anesthesia History Anesthesia History - project manager process development: Anesthesia History - project manager process development Hx Hospitalization No 03/25/25 09:06 Any Problems With Anesthesia No 03/25/25 09:06 Cholinesterase deficiency No 03/25/25 09:06 You/Your Family Experience No 03/25/25 09:06 fever (hyperthermia) with Relationship Recent Exposure to Contagious Disease Does patient have nerve No 03/25/25 09:06 stimulator Patient instructed to have device shut off --Does patient have Pacemaker or ICD? When Was Last Pacemaker Check QUESTION #4 FULL TEXT: You/Your Family Experience fever (hyperthermia) with Anesthesia Last Oral Intake Last Oral intake: Last Oral Intake NPO since Meds taken in AM with sips of water? Meds patient instructed to take am of surgery PONV PONV - project manager process development: PONV - project manager process development Female Yes 03/25/25 09:06 HX of Motion Sickness No 03/25/25 09:06 HX of N/V After Surgery No 03/25/25 09:06 Non-Smoker Yes 03/25/25 09:06 Duration of Surgery greater No 03/25/25 09:06 than 60 minutes Number of Risk Factors 2 03/25/25 09:06 PONV Score Moderate Risk 03/25/25 09:06 Height & Weight Height & Weight: Anesthesia: Height & Weight Height 5 ft 3 in 01/15/25 12:48 Respiratory Assessment Respiratory Assessment - project manager process development: Respiratory Tract Infection Hx - project manager process development Hx Respiratory Tract Infection No 03/25/25 09:06 STOP Sleep Apnea STOP Sleep Apnea - project manager process development: STOP Sleep Apnea - project manager process development Hx Hypertension Yes 03/25/25 09:06 Hx Sleep Apnea Yes 03/25/25 09:06 CPAP Yes 03/25/25 09:06 BIPAP No 03/25/25 09:06 Do you snore loudly (louder than talking or can be heard Do you often feel tired/ fatigued/ sleepy during daytime? Has anyone observed you stop breathing during sleep? STOP Results Positive 03/25/25 09:06 QUESTION #5 FULL TEXT : Do you snore loudly (louder than talking or can be heard through closed doors)? 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 Specify any problems Hx of Preganancy in last 3 No 03/25/25 09:06 Months Nurse Filling Out Transfusion VLEHMAN 03/25/25 09:06 & Questions: Date: 03/25/25 03/25/25 09:06 Time: 09:03/25/25 09:06 Patient unable to answer at this time (ie. confused, unrespo /Reproduction History /Reproductive History - project manager process development: /Reproductive Hx- project manager process development Hx Now No 03/25/25 09:06 Gestational Age (in weeks): EDC: Hx Hx Para Hx Section SAB PFSH Medical History (Updated 03/25/25 @ 09:17 by Darlene Ruiz) Wears dentures Wears glasses Post-menopausal Cancer Rash Ambulates with cane Arthritis History of renal disease Bladder disease Low iron High cholesterol TIA (transient ischemic attack) Gastric reflux Non-smoker CPAP (continuous positive airway pressure) dependence Sleep apnea Leg cramps History of stress test History of echocardiogram Cardiology follow-up encounter Asthma Hypertension Diabetes Home Medications ?Medication ?Instructions ?Recorded ?Last Taken ?Type rosuvastatin 10 mg tablet 10 mg PO QHS cholesterol 08/29/17 Unknown History acetaminophen 500 mg tablet 1,000 mg (2 x 500 mg) PO Q8 09/25/17 Unknown Rx albuterol sulfate 90 mcg/actuation 1 - 2 puff inhalation Q6H PRN PRN 09/25/17 Unknown Rx aerosol inhaler Sob &/Or Wheezing ##1 polyethylene glycol 3350 17 gram 17 gm PO DAILY #30 packets 09/25/17 Unknown Rx oral powder packet dapagliflozin propanediol 10 mg 10 mg PO QAM 02/13/25 03/24/25 History tablet (Farxiga) tirzepatide 2.5 mg/0.5 mL 2.5 mg subcut QWEEK 02/13/25 03/20/25 History subcutaneous pen injector (Nancy) aspirin 325 mg capsule 325 mg PO DAILY 03/25/25 Unknown History budesonide-formoterol HFA 80 2 puff inhalation BID 03/25/25 Unknown History mcg-4.5 mcg/actuation aerosol inhaler cholecalciferol (vitamin D3) 125 125 mcg PO DAILY 03/25/25 Unknown History mcg (5,000 unit) tablet (Vitamin D3) clopidogrel 75 mg tablet 75 mg PO DAILY 03/25/25 03/23/25 History ferrous sulfate 325 mg (65 mg 325 mg PO DAILY abdominal pain 03/25/25 Unknown History iron) tablet (FeroSul) pantoprazole 40 mg tablet,delayed 40 mg PO DAILY 03/25/25 Unknown History release potassium chloride 10 mEq 10 meq PO BID 03/25/25 Unknown History tablet,extended release (Klor-Con) vibegron 75 mg tablet (Gemtesa) 75 mg PO DAILY 03/25/25 Unknown History Allergy/AdvReac Type Severity Reaction Status Date / Time celecoxib (From Celebrex) Allergy unknown Verified 03/25/25 08:59 lisinopril Allergy unknown Verified 03/25/25 08:59 Family History Mother Heart disease Sister Heart disease Surgical History (Updated 03/25/25 @ 09:19 by Darlene Ruiz) History of cardiac catheterization History of total right knee replacement History of colectomy history of right shoulder surgery History of hysterectomy history of left hip surgery History of tonsillectomy Social History (Updated 09/09/18 @ 13:[address] Albert Lazar, ) Smoking Status: Never smoker Audit: Pertinent Findings Pertinent Findings EKG Perinent findings: EKG 08/28/2017. Normal sinus rhythm. Stress test pertinent findings: Stress echo 04/30/2020. Dobutamine stress echo with no evidence of ischemia. Preserved ejection fraction at rest and with peak perfusion. Recommendation Anesthesia Recommendation Anesthesia recommendation: OPTIMIZED for anesthesia
[2025-03-27] VITALS (8 sets, daily range): BP systolic 116–137; BP diastolic 68–88; PULSE 75–93; RESP 14–16; TEMP 36.1–36.9; O2SAT 98–100; BMI 31.7
[2025-03-27] MEDS: Lactated Ringers 1,000 ML 15 ML IV (11:25)
--- NOTE | 2025-03-27 11:40 | PRE.ANES_ITS ---
ASA Classification* ASA Classification ASA Classification: 2 Assessment & Plan Anesthesia* Anesthesia Assessment Anesthesia Assessment: Discussed sedation and/or anesthesia options, risks, benefits, and alternatives with patient/parents/legal guardian/POA. Questions invited. The patient/parents/legal guardian/POA seems to understand and agrees to proceed with anesthesia plan. Reviewed the physical assessment, medical history, allergy history and patient home medications list prior to surgery/procedure/anesthetic and documented any changes. Performed airway and anesthesia risk assessments. Anesthesia Type Anesthesia Type: MAC History Source History Obtained from:: Patient, Chart and Significant Other (Daughter present in the room) Anesthesia Focused Assessment* Temperature: 97 F Pulse Rate: 93 Blood Pressure: 125/73 Respiratory Rate: 16 Pulse Ox: 100 Oxygen Delivery Method: Room Air Airway Assessment Mouth opens: >3 cm Mallampati Score: II Teeth Condition: Dentures and Missing Neck Range of motion (ROM): Limited ROM Labs Anesthesia Preop lab: CBC WBC, (4.4-11.0) 8.6 K/mm3 07/14/19, 10: RBC, (4.2-5.4) 4.69 M/mm3 07/14/19, 10:49 Hgb, (12.0-15.0) 12.0 g/dL 07/14/19, : Hct, (37-47) 39.3 % 07/14/19, : Plt Count, (150-450) 258 K/mm3 07/14/19, 10:49 CHEMISTRY Potassium, (3.5-5.1) 4.5 mmol/L 07/14/19, 10: Sodium, (136-145) 144 mmol/L 07/14/19, 10:49 BUN, (7-18) 6 mg/dL L 07/14/19, 10:49 Creatinine, (0.55-1.02) 0.92 mg/dL 07/14/19, 10:49 Glucose, (74-106) 90 mg/dL 07/14/19, 10:49 POC Glucose, (70-110) 210 mg/dL H 09/28/17, 10:50 TSH, (0.358-3.74) 1.60 uIU/mL 04/04/19, 11:00 COAG Pre-Assessment Diagnosis/Proposed Procedure Planned Operative Procedure(s): COLONOSCOPY Anesthesia History Anesthesia History - heating and ventilating drafter: Anesthesia History - heating and ventilating drafter Hx Hospitalization No 03/25/25 09:06 Any Problems With Anesthesia No 03/25/25 09:06 Cholinesterase deficiency No 03/25/25 09:06 You/Your Family Experience No 03/25/25 09:06 fever (hyperthermia) with Relationship Recent Exposure to Contagious No 03/27/25 11:11 Disease Does patient have nerve No 03/25/25 09:06 stimulator Patient instructed to have device shut off --Does patient have Pacemaker No 03/27/25 11:11 or ICD? When Was Last Pacemaker Check QUESTION #4 FULL TEXT: You/Your Family Experience fever (hyperthermia) with Anesthesia Last Oral Intake Last Oral intake: Last Oral Intake NPO since 07:00 03/27/25 11:11 Meds taken in AM with sips of Yes 03/27/25 11:11 water? Meds patient instructed to take am of surgery PONV PONV - heating and ventilating drafter: PONV - heating and ventilating drafter Female Yes 03/25/25 09:06 HX of Motion Sickness No 03/25/25 09:06 HX of N/V After Surgery No 03/25/25 09:06 Non-Smoker Yes 03/25/25 09:06 Duration of Surgery greater No 03/25/25 09:06 than 60 minutes Number of Risk Factors 2 03/25/25 09:06 PONV Score Moderate Risk 03/25/25 09:06 Height & Weight Height & Weight: Anesthesia: Height & Weight Height 5 ft 4 in 03/27/25 11:11 Weight: 83.8 kg 03/27/25 11:11 Body Mass Index (BMI) 31.7 03/27/25 11:11 Respiratory Assessment Respiratory Assessment - heating and ventilating drafter: Respiratory Tract Infection Hx - heating and ventilating drafter Hx Respiratory Tract Infection No 03/25/25 09:06 STOP Sleep Apnea STOP Sleep Apnea - heating and ventilating drafter: STOP Sleep Apnea - heating and ventilating drafter Hx Hypertension Yes 03/25/25 09:06 Hx Sleep Apnea Yes 03/25/25 09:06 CPAP Yes 03/25/25 09:06 BIPAP No 03/25/25 09:06 Do you snore loudly (louder than talking or can be heard Do you often feel tired/ fatigued/ sleepy during daytime? Has anyone observed you stop breathing during sleep? STOP Results Positive 03/25/25 09:06 QUESTION #5 FULL TEXT : Do you snore loudly (louder than talking or can be heard through closed doors)? 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 Specify any problems Hx of Preganancy in last 3 No 03/25/25 09:06 Months Nurse Filling Out Transfusion VLEHMAN 03/25/25 09:06 & Questions: Date: 03/25/25 03/25/25 09:06 Time: 09:20 03/25/25 09:06 Patient unable to answer at this time (ie. confused, unrespo /Reproduction History /Reproductive History - heating and ventilating drafter: /Reproductive Hx- heating and ventilating drafter Hx Now No 03/25/25 09:06 Gestational Age (in weeks): EDC: Hx Hx Para Hx Section SAB Active Medications Active Medications: Current Medications Generic Name Dose Route Start Last Admin Trade Name Freq PRN Reason Stop Dose Admin Lactated Ringer's 1,000 mls @ 15 mls/hr 03/27/25 11:00 03/27/25 11:25 IV 15 mls/hr .Q48H JENNIFER Administration PFSH Medical History Wears dentures Wears glasses Post-menopausal Cancer Rash Ambulates with cane Arthritis History of renal disease Bladder disease Low iron High cholesterol TIA (transient ischemic attack) Gastric reflux Non-smoker CPAP (continuous positive airway pressure) dependence Sleep apnea Leg cramps History of stress test History of echocardiogram Cardiology follow-up encounter Asthma Hypertension Diabetes Home Medications ?Medication ?Instructions ?Recorded ?Last Taken ?Type rosuvastatin 10 mg tablet 10 mg PO QHS cholesterol Unknown History acetaminophen 500 mg tablet 1,000 mg (2 x 500 mg) PO Q 8 09/25/17 Unknown Rx albuterol sulfate 90 mcg/actuation 1 - 2 puff inhalati on Q6H PRN PRN 09/25/17 03/27/25 Rx aerosol inhaler Sob &/Or Wheezing ##1 polyethylene glycol 3350 17 gram 17 gm PO DAILY #30 pa ckets 09/25/17 Unknown Rx oral powder packet dapagliflozin propanediol 10 mg 10 mg PO QAM 02/13/25 03/24/25 History tablet (Farxiga) tirzepatide 2.5 mg/0.5 mL 2.5 mg subcut QWEEK 02/13/25 03/20/25 History subcutaneous pen injector (Mounjaro) aspirin 325 mg capsule 325 mg PO DAILY 03/25/25 Unk nown History budesonide-formoterol HFA 80 2 puff inhalation BID 03/27/25 History mcg-4.5 mcg/actuation aerosol inhaler cholecalciferol (vitamin D3) 125 125 mcg PO DAILY 03/03 10/24 Unknown History mcg (5,000 unit) tablet (Vitamin D3) clopidogrel 75 mg tablet 75 mg PO DAILY 03/25/2503/03 History ferrous sulfate 325 mg (65 mg 325 mg PO DAILY abdomina l pain 03/25/25 Unknown History iron) tablet (FeroSul) pantoprazole 40 mg tablet,delayed 40 mg PO DAILY 03/2503/27/25 07:00 History release potassium chloride 10 mEq 10 meq PO BID 03/25/25 Unkno wn History tablet,extended release (Klor-Con) vibegron 75 mg tablet (Gemtesa) 75 mg PO DAILY 5 Unknown History Allergy/AdvReac Type Severity Reaction Status Date / Time celecoxib (From Celebrex) Allergy unknown Verified 03/25/25 08:59 lisinopril Allergy unknown Verified 03/25/25 08:59 Family History Mother Heart disease Sister Heart disease Surgical History History of cardiac catheterization History of total right knee replacement History of colectomy history of right shoulder surgery History of hysterectomy history of left hip surgery History of tonsillectomy Social History Smoking Status: Never smoker Review of Systems (Anesthesia) ROS Narrative System reviewed and no additional complaints, except as documented.
--- NOTE | 2025-03-27 11:50 | PCM.HP.STD ---
HPI - General General Date of Admission: 03/27/25 Date of Service: 03/27/25 Chief Complaint: screening colon HPI Narrative KONRAD LOCKWOOD, is a 74 F who presents for a screening colonoscopy and complaints of chronic constipation. PMH includes DMII, constipation, CAD w/stents, neuropathy, CKD stage IIIa, fatty liver, asthma. Previously elevated lipase greater than 375 noted in October of this year, trended down to 71 as of January 21, 2025. December 24 abdominal ultrasound that noted gallbladder sludge and fatty liver, HIDA scan scheduled for February 20, 2025. She states her last colonoscopy was January 2021 where multiple polyps have been removed. She states personal history of having colon CA with partial left hemicolectomy in 2000. She reports BMs every 2 to 3 days with use of Dulcolax and 2 senna daily. Reports occasional use of enema for constipation about every other week. She is taking iron supplementation notes darker stools but denies hematochezia and melena. Reports poor dietary fiber intake as she likes her vegetables good and done. Reports on the 2nd or 3rd day of constipation she will have left lower quadrant abdominal pain, in the area of her bowel removal, that lasts until she has a BM. Reports presence of uncomfortable internal hemorrhoids and is asking if they can be banded or removed during colonoscopy. She denies difficulty chewing and swallowing, cough, throat clearing, sinus drainage, heartburn, reflux, nausea, emesis, abdominal bloating, and diarrhea. Reviewed pathology from colonoscopy with polypectomies from January 2021, from the right transverse and distal sigmoid colon, all 3 tubular adenomas. 11/19/2024 CT abdomen pelvis with IV contrast noted no acute intra-abdominal or pelvic process. Diverticulosis without acute diverticulitis. Punctate bilateral nonobstructing renal calculi. 12/01/24 complete abdominal ultrasound Impression: There is moderate gallbladder sludge that can be a sign of gallbladder dysfunction. No stone or signs of acute cholecystitis however. Equivocal findings of mild fatty infiltration of liver. Prior labs reviewed: 10/24-11/23: iron 68, chol 130, trig 37, HDL 60, LDL 63, hgb 13.7, plt 239, hgb A1c 5.8, lipase 71, AP 76, AST 18, ALT 18, BUN 9, creat 1.15 [facility] Medical History Wears dentures Wears glasses Post-menopausal Cancer Rash Ambulates with cane Arthritis History of renal disease Bladder disease Low iron High cholesterol TIA (transient ischemic attack) Gastric reflux Non-smoker CPAP (continuous positive airway pressure) dependence Sleep apnea Leg cramps History of stress test History of echocardiogram Cardiology follow-up encounter Asthma Hypertension Diabetes Home Medications ?Medication ?Instructions ?Recorded ?Last Taken ?Type rosuvastatin 10 mg tablet 10 mg PO QHS cholesterol 08/29/17 Unknown History acetaminophen 500 mg tablet 1,000 mg (2 x 500 mg) PO Q8 09/25/17 Unknown Rx albuterol sulfate 90 mcg/actuation 1 - 2 puff inhalation Q6H PRN PRN 09/25/17 03/27/25 Rx aerosol inhaler Sob &/Or Wheezing ##1 polyethylene glycol 3350 17 gram 17 gm PO DAILY #30 packets 09/25/17 Unknown Rx oral powder packet dapagliflozin propanediol 10 mg 10 mg PO QAM 02/13/25 03/24/25 History tablet (Farxiga) tirzepatide 2.5 mg/0.5 mL 2.5 mg subcut QWEEK 02/13/25 03/20/25 History subcutaneous pen injector (Mounjaro) aspirin 325 mg capsule 325 mg PO DAILY 03/25/25 Unknown History budesonide-formoterol HFA 80 2 puff inhalation BID 03/25/25 03/27/25 History mcg-4.5 mcg/actuation aerosol inhaler cholecalciferol (vitamin D3) 125 125 mcg PO DAILY 03/25/25 Unknown History mcg (5,000 unit) tablet (Vitamin D3) clopidogrel 75 mg tablet 75 mg PO DAILY 03/25/25 03/23/25 History ferrous sulfate 325 mg (65 mg 325 mg PO DAILY abdominal pain 03/25/25 Unknown History iron) tablet (FeroSul) pantoprazole 40 mg tablet,delayed 40 mg PO DAILY 03/25/25 03/27/25 07:00 History release potassium chloride 10 mEq 10 meq PO BID 03/25/25 Unknown History tablet,extended release (Klor-Con) vibegron 75 mg tablet (Gemtesa) 75 mg PO DAILY 03/25/25 Unknown History Allergy/AdvReac Type Severity Reaction Status Date / Time celecoxib (From Celebrex) Allergy unknown Verified 03/25/25 08:59 lisinopril Allergy unknown Verified 03/25/25 08:59 Family History Mother Heart disease Sister Heart disease Surgical History History of cardiac catheterization History of total right knee replacement History of colectomy history of right shoulder surgery History of hysterectomy history of left hip surgery History of tonsillectomy Social History Smoking Status: Never smoker ROS Constitutional Constitutional: Denies fatigue, fever(s), poor appetite, weight gain or weight loss Gastrointestinal Gastrointestinal: Denies belching, bloating, change in bowel habits, change in stool character, chewing difficulty, coffee ground emesis, constipation, cramping, diarrhea, dyspepsia, dysphagia, early satiety, excessive flatus, fecal incontinence, heartburn, hematemesis, hematochezia, hemorrhoids, loose stools, melena, nausea, odynophagia, rectal bleeding, tenesmus, vomiting or weight changes Vital Signs Vital Signs Vital Signs: 03/27/25 11:11 03/27/25 11:11 03/27/25 11:42 Temperature 97 F L 97 F L Temperature Source Temporal Pulse Rate 93 93 Respiratory Rate 16 16 Respiratory Pattern Normal Blood Pressure 125/73 H 125/73 H Blood Pressure Mean 90 Blood Pressure Source Monitor Blood Pressure Position Semi-Fowlers Blood Pressure Location Right Arm Pulse Ox 100 100 Oxygen Delivery Method Room Air Room Air Weight Weight: 184 lb 11.958 oz Body Mass Index (BMI) 31.7 Physical Exam Const alert, oriented x3, no apparent distress and healthy appearing General Appearance: cooperative GI normal to inspection, nondistended, normoactive bowel sounds, soft to palpation, non-tender and non-distended Percussion: normal to percussion Rectal Exam: deferred Assessment & Plan Assessment/Plan (1) Encounter for screening colonoscopy: PLAN: Assessment and Plan Assessment and Plan (1) Constipation: Status: Chronic Qualifiers: Constipation type: unspecified constipation type Qualified Code(s): K59.00 - Constipation, unspecified (2) Encounter for screening colonoscopy: Status: Acute Plan KONRAD LOCKWOOD, is a 74 F who presents to the office today for establishment with [facility] regarding concerns of obtaining a screening colonoscopy and complaints of chronic constipation. Discussed care plan with her. Obtain cardiac clearance Schedule colonoscopy with [place] Recommend psyllium husk daily Suggested trying 1 tablespoon of olive oil by mouth on empty stomach daily Suggested trying 8 ounces of prune juice +4 ounces of apple juice +1 tablespoon of butter, warm until butter melted, mix and drink office FU 2wks after colonoscopy
--- NOTE | 2025-03-27 12:00 | COLBX_PTH ---
PATIENT: KONRAD LOCKWOOD LOC: EN U#:[id number] AGE/SX: 74/F ROOM: RE03/27/[address]: Dr. Jaycob Kasper DO : 1950 BED: DIS: 03/27/2025 SPEC #: [id number] RECD: 03/27/25 13:50 STATUS: AARON REQ #: [id number] JENNIFER: 03/27/25 12:[address]: Jaycob Kasper DEPT: SURGICAL PATHOLOGY RECD BY: Brian Valero ENTERED: 03/27/25 14:44 SP TYPE: COLON BX ELEN DR: Dr. Riley Cabezas DO Tissues: A - Transverse colon B - Sigmoid colon biopsy Procedures: Surgery Specimen Level IV HEADER OPERATION: Colonoscopy PRE-OP DIAGNOSIS: Encounter for screening colonoscopy TISSUE SUBMITTED: A- Transverse colon polyp biopsy, B- Sigmoid polyp biopsy MICROSCOPIC DIAGNOSIS A. Transverse colon, polyp, biopsy: * Tubular adenoma. B. Sigmoid colon, polyp, biopsy: * Tubular adenoma. MICROSCOPIC DESCRIPTION Slides are reviewed. GROSS DESCRIPTION A. Received in fixative is one container labeled with the patient's name and designated Transverse colon polyp biopsy. The specimen consists of two irregular fragments of wilhelm tissue that measure 0.4 and 0.5 cm. The specimen is totally submitted in one cassette. B. Received in fixative is one container labeled with the patient's name and designated Sigmoid polyp biopsy. The specimen consists of one irregular fragment of wilhelm tissue that measures 0.5 cm. The specimen is totally submitted in one cassette. [place] 03/27/2025 CPT:11393m9
[2025-03-27] MEDS: Lidocaine 1% (5 ml sdv) 5 ML Vial 10 ML IV (12:17)
--- NOTE | 2025-03-27 12:44 | PCM.POST.ANE ---
Anesthesia: Postop Eval I Current Vital Signs Temperature: 97 F Pulse Rate: 81 Blood Pressure: 124/88 Respiratory Rate: 14 Pulse Ox: 98 Oxygen Delivery Method: Room Air Assessment Airway patent: Yes Spontaneous unlabored respirations: Yes Mental status: Calm nausea: No Vomiting: No Anesthesia Complication: No Fluid Hydration Crystalloid volume administer (ml): 500 Total IV fluid infused: 500 Progress Note Anesthesia document: Postop Eval 1 completed: Yes
--- NOTE | 2025-03-27 12:46 | OP.COLON_ITS ---
Patient Name: Jaye Calixto Procedure Date: 03/27/2025 12:07 PM Date of : 1950 Age: 74 Procedure: Colonoscopy Indications: Screening for colorectal malignant neoplasm Providers: Jaycob Kasper DO Referring MD: Riley Cabezas Do Medicines: Monitored Anesthesia Care Patient Profile: This is a 74 year old female. Refer to note in patient chart for documentation of history and physical. Last Colonoscopy: several years ago. Complications: No immediate complications. Procedure: Pre-Anesthesia Assessment: - Prior to the procedure, a History and Physical was performed, and patient medications and allergies were reviewed. The patient is competent. The risks and benefits of the procedure and the sedation options and risks were discussed with the patient. All questions were answered and informed consent was obtained. Patient identification and proposed procedure were verified by the physician in the pre-procedure area. Mental Status Examination: alert and oriented. Airway Examination: normal oropharyngeal airway and neck mobility. Respiratory Examination: clear to auscultation. CV Examination: normal. ASA Grade Assessment: II - A patient with mild systemic disease. After reviewing the risks and benefits, the patient was deemed in satisfactory condition to undergo the procedure. The anesthesia plan was to use monitored anesthesia care (MAC). Immediately prior to administration of medications, the patient was re-assessed for adequacy to receive sedatives. The heart rate, respiratory rate, oxygen saturations, blood pressure, adequacy of pulmonary ventilation, and response to care were monitored throughout the procedure. The physical status of the patient was re-assessed after the procedure. After I obtained informed consent, the scope was passed under direct vision. Throughout the procedure, the patient's blood pressure, pulse, and oxygen saturations were monitored continuously. The Colonoscope was introduced through the anus and advanced to the cecum, identified by appendiceal orifice and ileocecal valve. The colonoscopy was performed with ease. The patient tolerated the procedure well. The quality of the bowel preparation was adequate. The ileocecal valve, appendiceal orifice, and rectum were photographed. Scope In: 12:17:28 PM Scope Withdrawal Time 0 hours 16 minutes 54 seconds Scope Out: 12:37:24 PM Total Procedure Duration Time 0 hours 19 minutes 56 seconds Findings: The perianal and digital rectal examinations were normal. A few small-mouthed diverticula were found in the recto-sigmoid colon and sigmoid colon. Three sessile polyps were found in the sigmoid colon and transverse colon. The polyps were 7 mm in size. These polyps were removed with a jumbo cold forceps. Resection and retrieval were complete. Verification of patient identification for the specimen was done. Estimated blood loss was minimal. Two sessile polyps were found in the transverse colon and cecum. The polyps were 10 mm in size. These polyps were removed with a hot snare. Resection was complete, but the polyp tissue was not retrieved. Verification of patient identification for the specimen was done. Estimated blood loss was minimal. A diffuse area of moderate melanosis was found in the entire colon. There was a medium-sized lipoma, in the ascending colon. The exam was otherwise without abnormality on direct and retroflexion views. Non-bleeding internal hemorrhoids were found during retroflexion. The hemorrhoids were mild and Grade I (internal hemorrhoids that do not prolapse). Impression: - Diverticulosis in the recto-sigmoid colon and in the sigmoid colon. - Three 7 mm polyps in the sigmoid colon and in the transverse colon, removed with a jumbo cold forceps. Resected and retrieved. - Two 10 mm polyps in the transverse colon and in the cecum, removed with a hot snare. Complete resection. Polyp tissue not retrieved. - Melanosis in the colon. 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 - The examination was otherwise normal on direct and retroflexion views. - Non-bleeding internal hemorrhoids. Recommendation: - Repeat colonoscopy in 3 years for surveillance. - Continue present medications. Procedure Code(s): --- Professional --- 71827, Colonoscopy, flexible; with removal of tumor(s), polyp(s), or other lesion(s) by snare technique 98373, 59, Colonoscopy, flexible; with biopsy, single or multiple CPT copyright 2021 [employer]. All rights reserved. The codes documented in this report are preliminary and upon watershed tender review may be revised to meet current compliance requirements. Jaycob Kasper DO 03/27/2025 12:46:21 PM This report has been signed electronically. Number of Addenda: 0 Note Initiated On: 03/27/2025 12:07 PM
--- NOTE | 2025-03-27 12:46 | OP.PROVAT_ITS ---
03/27/2025 Riley Cabezas Do Re : Colonoscopy procedure for Jaye Calixto Dear Raulito This procedure was performed on Thursday, March 27, 2025. My impressions and recommendations are as follows: Impressions : - Diverticulosis in the recto-sigmoid colon and in the sigmoid colon. - Three 7 mm polyps in the sigmoid colon and in the transverse colon, removed with a jumbo cold forceps. Resected and retrieved. - Two 10 mm polyps in the transverse colon and in the cecum, removed with a hot snare. Complete resection. Polyp tissue not retrieved. - Melanosis in the colon. 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 - The examination was otherwise normal on direct and retroflexion views. - Non-bleeding internal hemorrhoids. Recommendations : - Repeat colonoscopy in 3 years for surveillance. - Continue present medications. My findings are described in the full procedure note, which is enclosed. If I can be of further assistance, please feel free to contact me at . Sincerely, Jaycob Kasper DO 03/27/2025 12:46:21 PM This report has been signed electronically.
--- NOTE | 2025-03-27 15:08 | POSTOPAN2_ITS ---
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.[email or web address] Spontaneous unlabored Yes 03/27/25 12:45 GLOBAL DIRECTOR [employer] CHANGE.[email or web address] respirations Mental status Calm 03/27/25 12:45 GLOBAL DIRECTOR [employer] CHANGE.[email or web address] nausea No 03/27/25 12:45 GLOBAL DIRECTOR [employer] CHANGE.[email or web address] Vomiting No 03/27/25 12:45 GLOBAL DIRECTOR [employer]IM[employer] CHANGE.[email or web address] Anesthesia Postop Eval I: Fluid Summary Crystalloid volume administer 500 03/27/25 12:45 GLOBAL DIRECTOR [employer] CHANGE.HBARR (ml) Colloids volume administered ( ml) Blood Product volume administered (ml) Total IV fluid infused 500 03/27/25 12:45 GLOBAL DIRECTOR [employer]IM[employer] CHANGE.[email or web address] Anesthesia Postop Eval I: Summary Notes Anesthesia Complication No 03/27/25 12:45 GLOBAL DIRECTOR [employer]IM[employer] CHANGE.HBARR Anesthesia Complication Comment: Post-operative progress note Anesthesia: Postop Eval II Evaluation Mental status: Awake and Calm Pain Level: 1 nausea: No Vomiting: No Complications Anesthesia Complication: No
--- NOTE | 2025-03-27 15:08 | PCM.POSTANE2 ---
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 Spontaneous unlabored Yes 03/27/25 12:45 ETCHER [email or web address].[email or web address] respirations Mental status Calm 03/27/25 12:45 ETCHER [email or web address].[email or web address] nausea No 03/27/25 12:45 ETCHER [email or web address].[email or web address] Vomiting No 03/27/25 12:45 ETCHER [email or web address].[email or web address] Anesthesia Postop Eval I: Fluid Summary Crystalloid volume administer 500 03/27/25 12:45 ETCHER [email or web address] (ml) Colloids volume administered ( ml) Blood Product volume administered (ml) Total IV fluid infused 500 03/27/25 12:45 ETCHER [email or web address].[email or web address] Anesthesia Postop Eval I: Summary Notes Anesthesia Complication No 03/27/25 12:45 ETCHER [email or web address].[email or web address] Anesthesia Complication Comment: Post-operative progress note Anesthesia: Postop Eval II Evaluation Mental status: Awake and Calm Pain Level: 1 nausea: No Vomiting: No Complications Anesthesia Complication: No
== END 2025-03-27 13:35 | disposition home or self-care (01) ==
LOC: EN 10:47 → AC 10:50
PROVIDERS: PCP Student in an Organized Health Care Education/Training Program; Referring Provider Student in an Organized Health Care Education/Training Program; Visit Provider Internal Medicine Gastroenterology
PROC: 0DJD8ZZ Inspection of Lower Intestinal Tract, Via Natural or Artificial Opening Endoscopic (ICD-10-PCS; CPT 45378; principal; 2025-03-27 11:55)
DX: Z12.11 Encounter for screening for malignant neoplasm of colon (principal); E11.22 Type 2 diabetes mellitus with diabetic chronic kidney disease; N18.31 Chronic kidney disease, stage 3a; Z79.84 Long term (current) use of oral hypoglycemic drugs; E78.00 Pure hypercholesterolemia, unspecified; K63.5 Polyp of colon; K64.0 First degree hemorrhoids; K63.89 Other specified diseases of intestine; Z79.85 Long-term (current) use of injectable non-insulin antidiabetic drugs; I25.10 Atherosclerotic heart disease of native coronary artery without angina pectoris; I12.9 Hypertensive chronic kidney disease with stage 1 through stage 4 chronic kidney disease, or unspecified chronic kidney disease; Z79.82 Long term (current) use of aspirin; K57.30 Diverticulosis of large intestine without perforation or abscess without bleeding; Z86.0100 Personal history of colon polyps, unspecified; Z85.038 Personal history of other malignant neoplasm of large intestine; Z86.73 Personal history of transient ischemic attack (TIA), and cerebral infarction without residual deficits; G47.30 Sleep apnea, unspecified; Z99.89 Dependence on other enabling machines and devices; Z79.899 Other long term (current) drug therapy; J45.909 Unspecified asthma, uncomplicated; Z79.51 Long term (current) use of inhaled steroids; K21.9 Gastro-esophageal reflux disease without esophagitis; Z79.02 Long term (current) use of antithrombotics/antiplatelets; Z96.651 Presence of right artificial knee joint; Z90.49 Acquired absence of other specified parts of digestive tract; Z90.710 Acquired absence of both cervix and uterus; K59.09 Other constipation; D12.0 Benign neoplasm of cecum; D17.5 Benign lipomatous neoplasm of intra-abdominal organs
CPT/HCPCS: 45380; 45385; 82962; 88305